=== PATIENT | male | born 1955 | race Caucasian/White ===

== ENCOUNTER 2017-01-02 21:06 | Inpatient (IN) | payer OTHER ==
[~2017-01-02] VITALS: Ht 165.1 cm; Wt 75.5 kg
[~2017-01-02 21:06] MED LIST: DIPHTH/TETANUS/ACEL PERTUSSIS (BOOSTER) 0.5 ML VIAL/PFS IM ONE; TERA2CAP3 PO; ceFAZolin 2 GM PREMIX 50 ML ONE
[2017-01-02 21:10] VITALS: O2SAT 98; O2SAT 99
[2017-01-02] MEDS ORDERED: fentaNYL CITRATE 250 MCG/5 ML AMP ONE (21:15)
[2017-01-02] MEDS ORDERED: ONDANSETRON HCL 4 MG/2 ML VIAL ONE (21:15)
[2017-01-02 21:26] LABS: I-STAT POTASSIUM 4.2 MMOL/L (3.5-4.9)
[2017-01-02 21:29] LABS: AUTOMATED NEUTROPHIL # 7.2 TH/MM3 (1.8-7.7); BASOPHIL # 0.1 TH/MM3 (0-0.2); BASOPHIL % 0.4 % (0.0-2.0); EOSINOPHIL # 0.1 TH/MM3 (0-0.4); EOSINOPHIL % 0.9 % (0.0-4.0); HEMATOCRIT 44.1 % (39.0-51.0); HEMO FLAGS DIFF FINAL; LYMPH % 37.3 % (9.0-44.0); LYMPHOCYTE # 4.7 TH/MM3 (1.0-4.8); MEAN CELL VOLUME 89.1 FL (80.0-100.0); MEAN CORPUSCULAR HEMOGLOBIN 31.1 PG (27.0-34.0); MEAN CORPUSCULAR HGB CONC 34.9 % (32.0-36.0); NEUT % 57.4 % (16.0-70.0); PLATELET COUNT 240 TH/MM3 (150-450); RED BLOOD COUNT 4.95 MIL/MM3 (4.50-5.90); WHITE BLOOD COUNT 12.6 TH/MM3 (4.0-11.0)
[2017-01-02 21:30] VITALS: BP 130/84; PULSE 92; RESP 18; O2SAT 92
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
[2017-01-02 22:00] VITALS: BP 127/81; PULSE 90; RESP 16; O2SAT 92
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
[2017-01-02 22:10] LABS: APTT (PATIENT) 23.2 SEC (24.3-30.1); PROTHROMBIN TIME - PATIENT 10.5 SEC (9.8-11.6)
[2017-01-02] MEDS ORDERED: SODIUM CHLORIDE 0.9% FLUSH 10 ML FLUSH IV FLUSH PRN (22:15)
[2017-01-02] MEDS ORDERED: SODIUM CHLOR 0.9% 1000 ML INJ 1,000 ML IV ONE (22:15)
[2017-01-02] MEDS ORDERED: MISCELLANEOUS NURSING INFORMATION XX SCH (22:15)
[2017-01-02] MEDS ORDERED: MORPHINE SULFATE 4 MG/ML INJ IV PUSH ONE (22:15)
[2017-01-02] MEDS ORDERED: LIDOCAINE 1%/EPINEPHrine 1:100,000 SOLN 20 ML VIAL INFIL ONE (22:15)
[2017-01-02] MEDS ORDERED: CHLORHEXIDINE GLUCONATE 2 % 1 PACK (2 CLOTHS) TOP PRN (22:15)
[2017-01-02] MEDS ORDERED: LIDOCAINE HCL 1% 50 ML VIAL INFIL ONE (22:15)
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
[2017-01-02] MEDS: SODIUM CHLOR 0.9% 1000 ML INJ 1,000 ML IV SCH (22:55)
[2017-01-02 23:00] VITALS: BP 119/81; PULSE 94; RESP 15; O2SAT 93
[2017-01-02] MEDS: KETOROLAC TROMETHAMINE 30 MG/ML (IVP) VIAL IV PUSH SCH (23:53)
[2017-01-02] MEDS: HYDROmorphone HCL PF 1 MG/ML VIAL IV PRN (23:53)
[2017-01-03] VITALS (15 sets, daily range): BP systolic 107–136; BP diastolic 68–86; PULSE 86–97; RESP 17–26; TEMP 98.2–99.7; O2SAT 89–97
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
[2017-01-03] MEDS: CHLORHEXIDINE GLUCONATE 2 % 1 PACK (2 CLOTHS) TOP SCH (03:22)
[2017-01-03 03:44] LABS: AUTOMATED NEUTROPHIL # 13.1 TH/MM3 (1.8-7.7); BASOPHIL % 0.3 % (0.0-2.0); EOSINOPHIL % 0.1 % (0.0-4.0); HEMATOCRIT 41.6 % (39.0-51.0); HEMO FLAGS DIFF FINAL; LYMPH % 11.2 % (9.0-44.0); LYMPHOCYTE # 1.8 TH/MM3 (1.0-4.8); MEAN CELL VOLUME 89.8 FL (80.0-100.0); MEAN CORPUSCULAR HGB CONC 34.6 % (32.0-36.0); MONO % 5.8 % (0.0-8.0); NEUT % 82.6 % (16.0-70.0); PLATELET COUNT 187 TH/MM3 (150-450); RED BLOOD COUNT 4.63 MIL/MM3 (4.50-5.90); RED CELL DISTRIBUTION WIDTH 12.7 % (11.6-17.2); WHITE BLOOD COUNT 15.8 TH/MM3 (4.0-11.0)
[2017-01-03] MEDS: HYDROmorphone HCL PF 1 MG/ML VIAL IV PRN ×2 (04:05→09:09)
[2017-01-03 04:06] LABS: BICARBONATE 19.9 MEQ/L (21.0-32.0); POTASSIUM 4.5 MEQ/L (3.5-5.1)
[2017-01-03] MEDS ORDERED: LORazepam 1 MG TAB PO PRN ×2 (04:15)
[2017-01-03] MEDS ORDERED: LORazepam 2 MG/ML VIAL IV PUSH PRN ×8 (04:15)
[2017-01-03] MEDS ORDERED: RESP: ALBUTEROL 2.5 MG/3 ML NEB (PRN) NEB (04:15)
[2017-01-03] MEDS: RESP: ALBUTEROL 2.5 MG/IPRATROPIUM 0.5 MG NEB (SCH) NEB ×4 (04:15→22:00)
[2017-01-03] MEDS ORDERED: oxyCODONE/ACETAMINOPHEN 10 MG/325 MG TAB PO PRN (04:15)
[2017-01-03] MEDS ORDERED: LORazepam 2 MG TAB PO PRN ×2 (04:15)
[2017-01-03] MEDS ORDERED: SODIUM CHLORIDE 0.9% FLUSH 10 ML FLUSH IV FLUSH PRN (04:15)
[2017-01-03 05:00] LABS: INDIRECT BILIRUBIN 0.5 MG/DL (0.0-0.8)
[2017-01-03] MEDS: KETOROLAC TROMETHAMINE 30 MG/ML (IVP) VIAL IV PUSH SCH ×3 (05:49→17:34)
[2017-01-03] MEDS ORDERED: PANTOPRAZOLE SODIUM 40 MG VIAL IV PUSH SCH (06:00)
--- NOTE | 2017-01-03 06:04 | RADRPT ---
EXAM DATE/TIME: 01/03/2017 05:26 [facility] COMPARISON: No previous studies available for comparison. INDICATIONS : Shortness of breath. MEDICAL HISTORY : None. SURGICAL HISTORY : None. ENCOUNTER: Initial ACUITY: 2 days PAIN SCORE: 5/10 LOCATION: Bilateral chest FINDINGS: A single view of the chest demonstrates interval development of prominent right-sided pneumothorax. T his measures 3.6 cm of pleural separation in the apex. The no mediastinal shift. Bibasilar densities, likely atelectasis. The cardiomediastinal contours are unremarkable. Osseous structures are intact. CONCLUSION: 1. Interval development of prominent right-sided pneumothorax. Right-sided chest tube recommended. 2. Bibasilar atelectasis greater in the left lower lobe. Cristian Burr MD on January 03, 2017 at 6:00 Board Certified Radiologist. This report was verified electronically.
--- NOTE | 2017-01-03 06:45 | RADRPT ---
EXAM DATE/TIME: 01/02/2017 21:26 [facility] COMPARISON: CT ABDOMEN & PELVIS W/O CONTRAST, January 02, 2017, 21:26. INDICATIONS : Left acetubalum fracture. ; Reconstructed from previous dataset MEDICAL HISTORY : Non-responsive. SURGICAL HISTORY : Non-responsive. ENCOUNTER: ACUITY: 2 days PAIN SCALE: Non-responsive LOCATION: Left pelvis TECHNIQUE: 3D reconstructions of the pelvis were performed. FINDINGS: Comminuted fracture of the left acetabulum again seen. There is significant separation of fracture fr agments. The femoral head is intact. Right hip is intact. Fracture extends into the ischial rami on t he left. CONCLUSION: 3-D reconstructions of left pelvic fracture. Cristian Burr MD on January 03, 2017 at 6:40 Board Certified Radiologist. This report was verified electronically.
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
[2017-01-03] MEDS: SODIUM CHLOR 0.9% 1000 ML INJ 1,000 ML IV SCH ×3 (07:51→23:58)
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
[2017-01-03] MEDS ORDERED: SODIUM CHLORIDE 0.9% FLUSH 10 ML FLUSH IV FLUSH SCH (09:00)
[2017-01-03] MEDS ORDERED: THIAMINE INJ 100 MG in SODIUM CHLORIDE 0.9% INJ 100 ML IV SCH (09:00)
[2017-01-03] MEDS: METHOCARBAMOL 500 MG TAB PO SCH ×3 (09:08→22:53)
[2017-01-03] MEDS: LACTULOSE SYRUP 20 GM/30 ML CUP PO SCH (09:09)
[2017-01-03] MEDS: FOLIC ACID 1 MG TAB PO SCH (09:09)
[2017-01-03] MEDS: MULTIVITAMIN TAB PO SCH (09:09)
[2017-01-03] MEDS: DOCUSATE SODIUM 50 MG/SENNA 8.6 MG TAB PO SCH ×2 (09:09→20:39)
[2017-01-03] MEDS: SODIUM CHLORIDE 0.9% FLUSH 10 ML FLUSH IV FLUSH SCH ×2 (09:10→20:40)
[2017-01-03] MEDS: LIDOCAINE HCL 5% PATCH T-DERMAL SCH (09:19)
[2017-01-03] MEDS ORDERED: HYDROmorphone HCL PCA 6 MG/30 ML IV SCH (11:15)
[2017-01-03] MEDS ORDERED: NALOXONE HCL 0.4 MG/ML AMP IV PRN (11:15)
[2017-01-03] MEDS: NICOTINE 21 MG/24 HR PATCH T-DERMAL SCH (11:51)
--- NOTE | 2017-01-03 11:55 | EKG ---
Date Performed: 01/02/2017 Time Performed: 21:57:58 PTAGE: 89 years EKG: Sinus rhythm INCOMPLETE RIGHT BUNDLE BRANCH BLOCK POSSIBLE LATERAL MYOCARDIAL INFARCTION BORDERLINE ECG NO PREVIOUS TRACING DOCTOR: Asif Calhoun Interpretating Date/Time 01/03/2017 11:51:26
[2017-01-03] MEDS ORDERED: MULTIVITAMIN INJ 10 ML, THIAMINE INJ 100 MG, FOLIC ACID INJ 1 MG in SODIUM CHLORID 0.9%... IV ONE (13:00)
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
[2017-01-03] MEDS ORDERED: fentaNYL CITRATE 250 MCG/5 ML AMP ONE (13:55)
[2017-01-03] MEDS: PCA - TOTAL MG DILAUDID DELIVERED PER SHIFT OTHER SCH ×2 (14:57→21:57)
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
[2017-01-03] MEDS: FAMOTIDINE 20 MG TAB PO SCH (20:39)
[2017-01-03] MEDS: TERAZOSIN HCL 5 MG CAP PO SCH (20:40)
[2017-01-03] MEDS: REMOVE OLD LIDODERM PATCH T-DERMAL SCH (21:00)
[2017-01-04] VITALS (8 sets, daily range): BP systolic 104–131; BP diastolic 61–72; PULSE 90–106; RESP 13–22; TEMP 97.6–99.8; O2SAT 92–96
[2017-01-04] MEDS: KETOROLAC TROMETHAMINE 30 MG/ML (IVP) VIAL IV PUSH SCH ×5 (00:11→17:57)
[2017-01-04] MEDS: RESP: ALBUTEROL 2.5 MG/IPRATROPIUM 0.5 MG NEB (SCH) NEB ×3 (03:42→16:00)
[2017-01-04] MEDS: CHLORHEXIDINE GLUCONATE 2 % 1 PACK (2 CLOTHS) TOP SCH (04:00)
[2017-01-04] MEDS: METHOCARBAMOL 500 MG TAB PO SCH ×3 (05:30→21:51)
[2017-01-04] MEDS: PCA - TOTAL MG DILAUDID DELIVERED PER SHIFT OTHER SCH (05:30)
[2017-01-04] MEDS ORDERED: VANCOMYCIN HCL 1000 MG VIAL ONE (06:23)
[2017-01-04] MEDS ORDERED: ceFAZolin 2 GM PREMIX 50 ML ONE (06:23)
[2017-01-04] MEDS ORDERED: HEPARIN SODIUM - SQ 10,000 UNITS/ML VIAL ONE (06:24)
[2017-01-04] MEDS ORDERED: GENTAMICIN SULFATE 80 MG/2 ML VIAL ONE (06:24)
[2017-01-04] MEDS ORDERED: SODIUM CHLOR 0.9% 250 ML INJ 250 ML ONE (06:24)
[2017-01-04] MEDS ORDERED: ACETAMINOPHEN 1000 MG/100 ML VIAL IV ONE (06:45)
[2017-01-04] MEDS ORDERED: MIDAZOLAM HCL 2 MG/2 ML VIAL ONE (06:46)
[2017-01-04] MEDS ORDERED: FAMOTIDINE 20 MG/2 ML VIAL ONE (06:46)
[2017-01-04] MEDS ORDERED: DEXAMETHASONE SOD PHOS 4 MG/ML VIAL ONE (06:46)
[2017-01-04] MEDS ORDERED: fentaNYL CITRATE 250 MCG/5 ML AMP ONE (06:46)
[2017-01-04] MEDS ORDERED: TRANEXAMIC ACID INJ 1,146 MG in SODIUM CHLORIDE 0.9% INJ 100 ML IV SCH (07:00)
[2017-01-04] MEDS ORDERED: THROMBIN (TOPICAL) 5,000 UNIT VIAL ONE (08:21)
[2017-01-04] MEDS ORDERED: GELFOAM SIZE 100 ONE (08:22)
[2017-01-04 08:38] LABS: HEMATOCRIT 30.3 % (39.0-51.0)
[2017-01-04 08:39] LABS: REVIEW FLAG FINAL
[2017-01-04] MEDS: REMOVE OLD PATCH T-DERMAL SCH (09:00)
[2017-01-04] MEDS: SODIUM CHLORIDE 0.9% FLUSH 10 ML FLUSH IV FLUSH SCH ×2 (09:00→21:47)
[2017-01-04 09:02] LABS: APTT (PATIENT) 27.2 SEC (24.3-30.1); PROTHROMBIN TIME - PATIENT 10.7 SEC (9.8-11.6)
[2017-01-04] MEDS ORDERED: NALOXONE HCL 0.4 MG/ML AMP IV PRN (10:00)
[2017-01-04] MEDS ORDERED: MISCELLANEOUS NURSING INFORMATION XX PRN (10:00)
[2017-01-04] MEDS ORDERED: MISCELLANEOUS PHARMACY INFORMATION XX ONE (10:00)
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
[2017-01-04] MEDS ORDERED: DO NOT ADM ANY ANTICOAGULANT DRUGS PRN (10:13)
[2017-01-04] MEDS ORDERED: MORPHINE SULFATE 4 MG/ML INJ IV PUSH PRN (11:00)
[2017-01-04] MEDS: LACTATED RINGER'S 1000 ML INJ 1,000 ML IV SCH ×2 (11:00→21:52)
[2017-01-04] MEDS ORDERED: ACETAMINOPHEN/HYDROcodone 325 MG/10 MG TAB PO PRN (11:00)
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
[2017-01-04 11:06] LABS: AUTOMATED NEUTROPHIL # 8.1 TH/MM3 (1.8-7.7); BASOPHIL % 0.4 % (0.0-2.0); EOSINOPHIL % 0.4 % (0.0-4.0); LYMPH % 8.1 % (9.0-44.0); LYMPHOCYTE # 0.7 TH/MM3 (1.0-4.8); MEAN CELL VOLUME 88.2 FL (80.0-100.0); MEAN CORPUSCULAR HEMOGLOBIN 30.3 PG (27.0-34.0); MEAN CORPUSCULAR HGB CONC 34.4 % (32.0-36.0); MONO % 3.2 % (0.0-8.0); NEUT % 87.9 % (16.0-70.0); PLATELET COUNT 90 TH/MM3 (150-450); RED BLOOD COUNT 4.09 MIL/MM3 (4.50-5.90); RED CELL DISTRIBUTION WIDTH 14.5 % (11.6-17.2); WHITE BLOOD COUNT 9.2 TH/MM3 (4.0-11.0)
[2017-01-04 11:08] LABS: HEMO FLAGS AUTO DIFF
[2017-01-04 11:18] LABS: APTT (PATIENT) 24.7 SEC (24.3-30.1); PROTHROMBIN TIME - PATIENT 10.9 SEC (9.8-11.6)
[2017-01-04] MEDS ORDERED: ENOXAPARIN SODIUM 30 MG/0.3 ML SYRINGE SQ SCH (11:45)
[2017-01-04 11:47] LABS: PLATELET ESTIMATE SMEAR LOW (NORMAL); PLATELET MORPHOLOGY NORMAL (NORMAL); SCAN/DIFF AUTO DIFF CONFIRMED
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
[2017-01-04] MEDS ORDERED: ONDANSETRON HCL 4 MG/2 ML VIAL IV PUSH ONE (13:09)
[2017-01-04] MEDS ORDERED: NEOSTIGMINE 3 MG/3 ML SYR IV ONE (13:09)
[2017-01-04] MEDS ORDERED: LACTATED RINGER'S 1000 ML INJ 1,000 ML IV ONE (13:09)
[2017-01-04] MEDS ORDERED: ePHEDrine/NS 25 MG/5 ML SYR IV ONE (13:09)
[2017-01-04] MEDS ORDERED: PROPOFOL 200 MG/20 ML AMP IV ONE (13:09)
[2017-01-04] MEDS ORDERED: PHENYLEPH/NS 1000 MCG/10 ML SYR IV ONE (13:09)
[2017-01-04] MEDS: PCA - TOTAL MG MORPHINE DELIVERED PER SHIFT SCH ×2 (14:00→22:00)
--- NOTE | 2017-01-04 14:25 | RADRPT ---
EXAM DATE/TIME: 01/04/2017 09:20 [facility] COMPARISON: CT ABDOMEN & PELVIS W/O CONTRAST, January 02, 2017, 21:26. INDICATIONS : ORIF left acetabulum. MEDICAL HISTORY : None. SURGICAL HISTORY : None. ENCOUNTER: Subsequent ACUITY: 3 days PAIN SCORE: Non-responsive. LOCATION: Left acetabulum. FINDINGS: 3 views of the left hip demonstrates postsurgical changes following open reduction and internal fixat ion of comminuted fractures involving the anterior and posterior columns of the acetabulum. Long fixa tion screw is also seen along the iliopectineal line extending into the superior pubic ramus. Fractur e fragments appear in satisfactory aligned. CONCLUSION: Satisfactory fracture fragment alignment following ORIF of a comminuted left acetabular fracture. Hosea Rodney MD on January 04, 2017 at 14:21 Board Certified Radiologist. This report was verified electronically.
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
[2017-01-04] MEDS: NICOTINE 21 MG/24 HR PATCH T-DERMAL SCH (15:04)
[2017-01-04] MEDS: LIDOCAINE HCL 5% PATCH T-DERMAL SCH (15:05)
[2017-01-04] MEDS: MULTIVITAMIN TAB PO SCH (15:06)
[2017-01-04] MEDS: FOLIC ACID 1 MG TAB PO SCH (15:06)
[2017-01-04] MEDS: LACTULOSE SYRUP 20 GM/30 ML CUP PO SCH (15:06)
[2017-01-04] MEDS: FAMOTIDINE 20 MG TAB PO SCH ×2 (15:06→21:47)
[2017-01-04] MEDS: DOCUSATE SODIUM 50 MG/SENNA 8.6 MG TAB PO SCH ×2 (15:06→21:47)
[2017-01-04] MEDS: ceFAZolin 2 GM PREMIX 50 ML IV SCH ×2 (15:55→21:51)
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
[2017-01-04] MEDS: REMOVE OLD LIDODERM PATCH T-DERMAL SCH (21:00)
[2017-01-04] MEDS: VANCOMYCIN INJ 1,000 MG in SODIUM CHLOR 0.9% 250 ML INJ 250 ML IV SCH (21:47)
[2017-01-04] MEDS: TERAZOSIN HCL 5 MG CAP PO SCH (21:51)
[2017-01-05] VITALS (11 sets, daily range): BP systolic 95–109; BP diastolic 61–69; PULSE 90–101; RESP 18–22; TEMP 97.5–99.7; O2SAT 89–95
[2017-01-05] MEDS: KETOROLAC TROMETHAMINE 30 MG/ML (IVP) VIAL IV PUSH SCH ×5 (00:02→22:09)
[2017-01-05] MEDS: RESP: ALBUTEROL 2.5 MG/IPRATROPIUM 0.5 MG NEB (SCH) NEB ×4 (04:00→21:39)
[2017-01-05 05:29] LABS: AUTOMATED NEUTROPHIL # 5.6 TH/MM3 (1.8-7.7); BASOPHIL % 0.3 % (0.0-2.0); EOSINOPHIL # 0.1 TH/MM3 (0-0.4); EOSINOPHIL % 0.8 % (0.0-4.0); HEMATOCRIT 26.7 % (39.0-51.0); LYMPH % 16.1 % (9.0-44.0); LYMPHOCYTE # 1.2 TH/MM3 (1.0-4.8); MEAN CELL VOLUME 88.3 FL (80.0-100.0); MEAN CORPUSCULAR HEMOGLOBIN 30.7 PG (27.0-34.0); MEAN CORPUSCULAR HGB CONC 34.8 % (32.0-36.0); MONO % 8.8 % (0.0-8.0); PLATELET COUNT 89 TH/MM3 (150-450); RED BLOOD COUNT 3.02 MIL/MM3 (4.50-5.90); WHITE BLOOD COUNT 7.5 TH/MM3 (4.0-11.0)
[2017-01-05 05:34] LABS: HEMO FLAGS AUTO DIFF
[2017-01-05 05:42] LABS: ALKALINE PHOSPHATASE 46 U/L (45-117); ALT (GPT) 51 U/L (12-78); ANION GAP 7 MEQ/L (5-15); AST (GOT) 108 U/L (15-37); BICARBONATE 26.5 MEQ/L (21.0-32.0); BLOOD UREA NITROGEN 10 MG/DL (7-18); CHLORIDE 106 MEQ/L (98-107); GLOMERULAR FILTRATION RATE 72 ML/MIN (>89); MAGNESIUM 1.9 MG/DL (1.5-2.5); POTASSIUM 3.8 MEQ/L (3.5-5.1); SODIUM (NA) 139 MEQ/L (136-145); TOTAL BILIRUBIN ADULT 0.7 MG/DL (0.2-1.0)
[2017-01-05] MEDS: ceFAZolin 2 GM PREMIX 50 ML IV SCH ×3 (05:54→22:09)
[2017-01-05] MEDS: METHOCARBAMOL 500 MG TAB PO SCH ×3 (05:55→22:09)
[2017-01-05] MEDS: LACTATED RINGER'S 1000 ML INJ 1,000 ML IV SCH ×2 (06:00→16:43)
[2017-01-05] MEDS: PCA - TOTAL MG MORPHINE DELIVERED PER SHIFT SCH ×3 (06:00→21:02)
--- NOTE | 2017-01-05 06:38 | PD.ORT.PN ---
Subjective Subjective Remarks POD 1 s/p ORIF left acetabulum doing well. reports has pain but controlled. Objective Vitals Vital Signs Date Time Temp Pulse Resp B/P Pulse Ox O2 Delivery O2 Flow Rate FiO2 01/05/17 06:00 17 01/05/17 03:40 98.3 98 18 100/63 95 01/05/17 00:00 99.7 99 18 108/66 95 01/04/17 22:00 19 01/04/17 19:47 98.5 95 17 112/66 96 01/04/17 18:58 Nasal Cannula 3.00 01/04/17 16:00 97.6 94 18 118/63 96 01/04/17 16:00 94 01/04/17 15:00 97 Nasal Cannula 4.00 01/04/17 15:00 94 01/04/17 14:00 20 01/04/17 12:00 96 01/04/17 12:00 97.6 96 22 114/72 95 01/04/17 11:10 101 14 142/79 95 Nasal Cannula 2 01/04/17 11:00 99 14 137/81 94 Nasal Cannula 2 01/04/17 10:45 97 14 139/84 94 Nasal Cannula 2 01/04/17 10:30 112 14 150/94 98 Nasal Cannula 2 01/04/17 10:25 Simple Mask 01/04/17 10:15 97.6 110 14 145/90 98 Simple Mask 10 I/O 01/04/17 01/04/17 01/04/17 01/05/17 01/05/17 01/05/17 07:00 15:00 23:00 07:00 15:00 23:00 Intake Total 970 ml 3148 ml 881 ml 1118 ml Output Total 1425 ml 2765 ml 835 ml 1360 ml Balance -455 ml 383 ml 46 ml -242 ml Intake Oral 0 ml 120 ml 720 ml 480 ml IV Total 970 ml 728 ml 161 ml 638 ml Other 2300 ml Output Urine Total 1425 ml 1325 ml 825 ml 1350 ml Chest Tube Drainage Total 0 ml 115 ml 0 ml 0 ml Drainage Total 25 ml 10 ml 10 ml Estimated Blood Loss 1300 ml # Bowel Movements 0 0 Result Diagram: 01/05/17 0436 01/05/17 0436 Other Results Laboratory Tests Test 01/04/17 01/04/17 08:08 10:30 Prothrombin Time 10.7 SEC 10.9 SEC (9.8-11.6) (9.8-11.6) Prothromb Time International 1.0 RATIO 1.0 RATIO Ratio Imaging Last 24 hours Impressions Multiplanar Reconstruction 01/03/17 0000 Signed Impressions: Service Date/Time: Monday, January 02, 2017 21:26 - CONCLUSION: 3-D reconstructions of left pelvic fracture. Cristian Burr MD Chest X-Ray 01/03/17 0000 Signed Impressions: Service Date/Time: Tuesday, January 03, 2017 05:26 - CONCLUSION: 1. Interval development of prominent right-sided pneumothorax. Right-sided chest tube recommended. 2. Bibasilar atelectasis greater in the left lower lobe. Cristian Burr MD Thoracic Spine CT 01/02/172114 Signed Impressions: Service Date/Time: Monday, January 02, 2017 21:26 - CONCLUSION: 1. Fracture of the right posterior first rib. 2. The thoracic vertebra are intact. Basilio Nicole MD Lumbar Spine CT 01/02/172114 Signed Impressions: Service Date/Time: Monday, January 02, 2017 21:26 - CONCLUSION: 1. No evidence of fracture. 2. Grade 1 anterior spondylolisthesis of L5 on S1 of approximately 9 mm with apparent bilateral pars defects. There are mild degenerative disc changes at this level with disc bulge and narrowing of the neural foramina bilaterally. Basilio Nicole MD Pelvis X-Ray 01/02/172110 Signed Impressions: Service Date/Time: Monday, January 02, 2017 21:05 - CONCLUSION: Racture to the superior left acetabulum. Basilio Nicole MD Head CT 01/02/172110 Signed Impressions: Service Date/Time: Monday, January 02, 2017 21:21 - CONCLUSION: 1. Suboptimal study secondary to streak and mild motion artifact. 2. No acute hemorrhage or mass effect. Basilio Nicole MD Chest X-Ray 01/02/172110 Signed Impressions: Service Date/Time: Monday, January 02, 2017 21:05 - CONCLUSION: Multiple right-sided rib fractures with no visualized pneumothorax on this supine study. Basilio Nicole MD Chest CT 01/02/172110 Signed Impressions: Service Date/Time: Monday, January 02, 2017 21:26 - CONCLUSION: 1. Multiple right-sided rib fractures one of which is mildly displaced with small amount of subcutaneous air and no visualized pneumothorax. 2. Small to moderate size hiatal hernia. 3. Atelectasis in the dependent portions of the lung bases. Basilio Nicole MD Cervical Spine CT 01/02/172110 Signed Impressions: Service Date/Time: Monday, January 02, 2017 21:21 - CONCLUSION: Fracture of the right anterior first rib. The cervical spine is intact. Basilio Nicole MD Abdomen/Pelvis CT 01/02/172110 Signed Impressions: Service Date/Time: Monday, January 02, 2017 21:26 - CONCLUSION: 1. No definite evidence of visceral injury. 2. Comminuted fracture deformity of the left acetabulum. 3. Are currently enlarged bladder with trabeculation and multiple diverticuli. 4. Moderate bilateral hydronephrosis. 5. Hiatal hernia. Basilio Nicole MD Objective Remarks LLE: dressings clean and dry. intact. NVI with good dorsiflexion. +CKS. Assessment & Plan Assessment and Plan 1) Left Acetabulum Fx s/p ORIF - POD 1 -TTWB left leg -daily dressing changes POD 2 -DC drain POD 2 with dressing change -knee brace while in bed -work with PT\ -plan for DC to rehab when stable and bed available -f/u Radha or [facility]Y in 2 weeks -will order 1 unit of platelets today Thiago Monge Jan 05, 2017 06:38
[2017-01-05] MEDS ORDERED: HYDR-3366 PO (06:40)
[2017-01-05] MEDS ORDERED: WALKER/ADULT/FO1 MIS (06:40)
[2017-01-05] MEDS ORDERED: XARE10TA PO (06:40)
[2017-01-05] MEDS: MORPHINE SULFATE 30 MG/30 ML PCA IV SCH (06:44)
[2017-01-05] MEDS ORDERED: diphenhydrAMINE HCL 25 MG CAP PO PRN (06:45)
[2017-01-05] MEDS ORDERED: SODIUM CHLOR 0.9% 250 ML INJ 250 ML IV ONE (06:45)
[2017-01-05 06:50] LABS: PLATELET ESTIMATE SMEAR LOW (NORMAL); PLATELET MORPHOLOGY NORMAL (NORMAL); SCAN/DIFF AUTO DIFF CONFIRMED
--- NOTE | 2017-01-05 07:58 | RADRPT ---
EXAM DATE/TIME: 01/05/2017 06:48 [facility] COMPARISON: CHEST SINGLE AP, January 04, 2017, 12:10. INDICATIONS : Evaluate right side pneumothorax and chest tube MEDICAL HISTORY : rib fractures SURGICAL HISTORY : chest tube ENCOUNTER: Subsequent ACUITY: 4 - 6 days PAIN SCORE: 6/10 LOCATION: Bilateral chest FINDINGS: Portable upright expiratory view of the chest demonstrates a normal-sized cardiac silhouette. Right c hest tube is present and no pneumothorax is visualized. There is atelectasis versus consolidation in the retrocardiac region. No pleural effusion is seen. Bones demonstrate no acute finding. CONCLUSION: 1. Right chest tube remains present and no pneumothorax is visualized. 2. There is atelectasis versus consolidation in the left lower lobe. David Olmos MD on January 05, 2017 at 7:55 Board Certified Radiologist. This report was verified electronically.
[2017-01-05] MEDS: SODIUM CHLORIDE 0.9% FLUSH 10 ML FLUSH IV FLUSH SCH ×2 (08:21→20:37)
[2017-01-05] MEDS: VANCOMYCIN INJ 1,000 MG in SODIUM CHLOR 0.9% 250 ML INJ 250 ML IV SCH ×2 (08:21→19:33)
[2017-01-05] MEDS: MULTIVITAMIN TAB PO SCH (08:22)
[2017-01-05] MEDS: FOLIC ACID 1 MG TAB PO SCH (08:22)
[2017-01-05] MEDS: FAMOTIDINE 20 MG TAB PO SCH ×2 (08:22→19:36)
[2017-01-05] MEDS: ENOXAPARIN SODIUM 30 MG/0.3 ML SYRINGE SQ SCH ×2 (08:22→19:36)
[2017-01-05] MEDS: DOCUSATE SODIUM 50 MG/SENNA 8.6 MG TAB PO SCH ×2 (08:22→19:36)
[2017-01-05] MEDS: LACTULOSE SYRUP 20 GM/30 ML CUP PO SCH (08:22)
[2017-01-05] MEDS: INDOMETHACIN 75 MG CONTROLLED RELEASE CAP PO SCH (08:22)
[2017-01-05] MEDS: NICOTINE 21 MG/24 HR PATCH T-DERMAL SCH (08:22)
[2017-01-05] MEDS: REMOVE OLD PATCH T-DERMAL SCH (08:23)
[2017-01-05] MEDS: LIDOCAINE HCL 5% PATCH T-DERMAL SCH (08:23)
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
--- NOTE | 2017-01-05 13:42 | RADRPT ---
EXAM DATE/TIME: 01/05/2017 13:13 [facility] COMPARISON: CHEST SINGLE AP, January 05, 2017, 6:48. INDICATIONS : Evaluate right side pneumothorax and chest tube MEDICAL HISTORY : rib fractures SURGICAL HISTORY : chest tube ENCOUNTER: Subsequent ACUITY: 4 - 6 days PAIN SCORE: 2/10 LOCATION: Right chest FINDINGS: Expiratory view the chest was performed. There is no evidence of significant right-sided pneumothorax . Chest tube remains in place. CONCLUSION: No evidence of significant pneumothorax. Hosea Rodney MD on January 05, 2017 at 13:32 Board Certified Radiologist. This report was verified electronically.
--- NOTE | 2017-01-05 15:44 | RADRPT ---
EXAM DATE/TIME: 01/05/2017 15:00 [facility] COMPARISON: CHEST SINGLE AP, January 05, 2017, 13:13. INDICATIONS : RIGHT ANTERIOR CHEST TUBE REMOVAL DEVICE(S): 1.) Vaseline occlusive dressing PROCEDURE : Chest tube removal. Using aseptic technique the previously placed chest tube was easily removed in one piece and Vaseline gauze and sterile dressing was applied. Chest radiograph is to be obtained. CONCLUSION: Uncomplicated chest tube removal. Hosea Rodney MD on January 05, 2017 at 15:41 Board Certified Radiologist. This report was verified electronically.
--- NOTE | 2017-01-05 16:21 | RADRPT ---
EXAM DATE/TIME: 01/05/2017 15:16 [facility] COMPARISON: CHEST SINGLE AP, January 05, 2017, 13:13. INDICATIONS : Evaluate for pneumothorax, post chest tube removal. MEDICAL HISTORY : None. SURGICAL HISTORY : None. ENCOUNTER: Initial ACUITY: 1 day PAIN SCORE: 0/10 LOCATION: Bilateral chest FINDINGS: There has been interval removal of a right thoracostomy tube. There is no evidence of pneumothorax. B asilar parenchymal opacities are likely exacerbated by expiratory technique. Mild vascular congestion and perihilar parenchymal opacity mainly on the right are stable findings. CONCLUSION: Right chest tube removal without pneumothorax. David Aguilar MD on January 05, 2017 at 15:58 Board Certified Radiologist. This report was verified electronically.
[2017-01-05] MEDS ORDERED: BISACODYL EC 5 MG TABEC PO ONE (17:00)
[2017-01-05] MEDS ORDERED: BISACODYL 10 MG SUPP RECTAL ONE (17:00)
[2017-01-05] MEDS: TERAZOSIN HCL 5 MG CAP PO SCH (19:36)
[2017-01-05] MEDS: REMOVE OLD LIDODERM PATCH T-DERMAL SCH (19:37)
[2017-01-06] VITALS (8 sets, daily range): BP systolic 104–116; BP diastolic 63–72; PULSE 87–106; RESP 16–22; TEMP 98.3–99.7; O2SAT 92–95
[2017-01-06] MEDS: RESP: ALBUTEROL 2.5 MG/IPRATROPIUM 0.5 MG NEB (SCH) NEB ×5 (03:47→23:02)
[2017-01-06] MEDS: KETOROLAC TROMETHAMINE 30 MG/ML (IVP) VIAL IV PUSH SCH ×4 (04:31→22:38)
[2017-01-06] MEDS: METHOCARBAMOL 500 MG TAB PO SCH ×3 (04:31→22:38)
[2017-01-06] MEDS: ceFAZolin 2 GM PREMIX 50 ML IV SCH ×3 (04:32→22:38)
[2017-01-06] MEDS: MORPHINE SULFATE 30 MG/30 ML PCA IV SCH (04:37)
[2017-01-06] MEDS: PCA - TOTAL MG MORPHINE DELIVERED PER SHIFT SCH ×3 (04:45→20:48)
[2017-01-06 05:33] LABS: AUTOMATED NEUTROPHIL # 3.5 TH/MM3 (1.8-7.7); BASOPHIL % 0.7 % (0.0-2.0); EOSINOPHIL # 0.2 TH/MM3 (0-0.4); EOSINOPHIL % 2.7 % (0.0-4.0); HEMATOCRIT 24.4 % (39.0-51.0); HEMO FLAGS DIFF FINAL; LYMPH % 25.8 % (9.0-44.0); LYMPHOCYTE # 1.4 TH/MM3 (1.0-4.8); MEAN CELL VOLUME 86.8 FL (80.0-100.0); MEAN CORPUSCULAR HEMOGLOBIN 30.7 PG (27.0-34.0); MEAN CORPUSCULAR HGB CONC 35.4 % (32.0-36.0); MONO % 7.8 % (0.0-8.0); PLATELET COUNT 124 TH/MM3 (150-450); RED BLOOD COUNT 2.81 MIL/MM3 (4.50-5.90); RED CELL DISTRIBUTION WIDTH 14.2 % (11.6-17.2); WHITE BLOOD COUNT 5.6 TH/MM3 (4.0-11.0)
[2017-01-06 05:55] LABS: ALT (GPT) 42 U/L (12-78); ANION GAP 6 MEQ/L (5-15); AST (GOT) 101 U/L (15-37); BLOOD UREA NITROGEN 8 MG/DL (7-18); CHLORIDE 107 MEQ/L (98-107); GLOMERULAR FILTRATION RATE 85 ML/MIN (>89); MAGNESIUM 1.7 MG/DL (1.5-2.5); POTASSIUM 3.7 MEQ/L (3.5-5.1); SODIUM (NA) 141 MEQ/L (136-145)
[2017-01-06 05:57] LABS: ALKALINE PHOSPHATASE 51 U/L (45-117); TOTAL BILIRUBIN ADULT 0.6 MG/DL (0.2-1.0)
--- NOTE | 2017-01-06 06:33 | RADRPT ---
EXAM DATE/TIME: 01/06/2017 05:25 [facility] COMPARISON: CHEST SINGLE AP, January 05, 2017, 13:13. INDICATIONS : Shortness of breath, possible pulmonary disease. MEDICAL HISTORY : None. SURGICAL HISTORY : None. ENCOUNTER: Subsequent ACUITY: 4 - 6 days PAIN SCORE: 7/10 LOCATION: Bilateral chest FINDINGS: The cardiac silhouette is normal in transverse diameter. There is left lower lobe atelectasis versus pneumonia. There is resolving pulmonary vascular congestion. Right chest tube has been removed. There is no evidence of pneumothorax. CONCLUSION: 1. Resolving vascular congestion. There is no evidence of pneumothorax. 2. Left lower lobe atelectasis versus pneumonia. Scotty Stout MD on January 06, 2017 at 6:30 Board Certified Radiologist. This report was verified electronically.
[2017-01-06] MEDS: VANCOMYCIN INJ 1,000 MG in SODIUM CHLOR 0.9% 250 ML INJ 250 ML IV SCH (08:29)
[2017-01-06] MEDS: NICOTINE 21 MG/24 HR PATCH T-DERMAL SCH (08:29)
[2017-01-06] MEDS: DOCUSATE SODIUM 50 MG/SENNA 8.6 MG TAB PO SCH ×2 (08:30→20:47)
[2017-01-06] MEDS: INDOMETHACIN 75 MG CONTROLLED RELEASE CAP PO SCH (08:30)
[2017-01-06] MEDS: FAMOTIDINE 20 MG TAB PO SCH ×2 (08:30→20:47)
[2017-01-06] MEDS: LACTULOSE SYRUP 20 GM/30 ML CUP PO SCH (08:30)
[2017-01-06] MEDS: FOLIC ACID 1 MG TAB PO SCH (08:30)
[2017-01-06] MEDS: ENOXAPARIN SODIUM 30 MG/0.3 ML SYRINGE SQ SCH ×2 (08:30→20:46)
[2017-01-06] MEDS: LIDOCAINE HCL 5% PATCH T-DERMAL SCH (08:30)
[2017-01-06] MEDS: MULTIVITAMIN TAB PO SCH (08:30)
[2017-01-06] MEDS: REMOVE OLD PATCH T-DERMAL SCH (08:30)
[2017-01-06] MEDS: SODIUM CHLORIDE 0.9% FLUSH 10 ML FLUSH IV FLUSH SCH ×2 (08:31→20:47)
--- NOTE | 2017-01-06 09:18 | PD.ORT.PN ---
Subjective Post Op Day #: 2 Subjective Remarks Patient laying comfortably in bed, accompanied by his . He admits left hip pain is well controlled. He states he walked successfully with assistance. Awaiting rehab placement / approval (patient reports he does not have medical insurance at this time). No new complaints noted. Objective Vitals Vital Signs Date Time Temp Pulse Resp B/P Pulse Ox O2 Delivery O2 Flow Rate FiO2 01/06/17 04:45 20 01/06/17 04:37 20 01/06/17 04:13 98.9 102 22 110/72 94 01/06/17 00:27 99.7 106 22 104/68 94 01/05/17 21:43 93 Nasal Cannula 01/05/17 21:35 98.2 94 22 99/62 92 01/05/17 21:02 20 01/05/17 16:14 89 Nasal Cannula 3.00 01/05/17 15:00 97.5 92 18 101/65 91 01/05/17 14:00 18 01/05/17 12:00 98.9 90 18 109/69 95 01/05/17 11:28 99.2 95 18 104/64 95 01/05/17 11:18 99.6 97 18 105/65 94 I/O 01/05/17 01/05/17 01/05/17 01/06/17 01/06/17 01/06/17 07:00 15:00 23:00 07:00 15:00 23:00 Intake Total 1118 ml 1253 ml Output Total 1360 ml 730 ml Balance -242 ml 523 ml Intake Oral 480 ml 520 ml IV Total 638 ml 263 ml Platelets 470 ml Output Urine Total 1350 ml 600 ml Chest Tube Drainage Total 0 ml 100 ml Drainage Total 10 ml 30 ml # Bowel Movements 0 2 Result Diagram: 01/06/17 0507 01/06/17 0507 Imaging Last 24 hours Impressions Multiplanar Reconstruction 01/03/17 0000 Signed Impressions: Service Date/Time: Monday, January 02, 2017 21:26 - CONCLUSION: 3-D reconstructions of left pelvic fracture. Cristian Burr MD Chest X-Ray 01/03/17 0000 Signed Impressions: Service Date/Time: Tuesday, January 03, 2017 05:26 - CONCLUSION: 1. Interval development of prominent right-sided pneumothorax. Right-sided chest tube recommended. 2. Bibasilar atelectasis greater in the left lower lobe. Cristian Burr MD Thoracic Spine CT 01/02/172114 Signed Impressions: Service Date/Time: Monday, January 02, 2017 21:26 - CONCLUSION: 1. Fracture of the right posterior first rib. 2. The thoracic vertebra are intact. Basilio Nicole MD Lumbar Spine CT 01/02/172114 Signed Impressions: Service Date/Time: Monday, January 02, 2017 21:26 - CONCLUSION: 1. No evidence of fracture. 2. Grade 1 anterior spondylolisthesis of L5 on S1 of approximately 9 mm with apparent bilateral pars defects. There are mild degenerative disc changes at this level with disc bulge and narrowing of the neural foramina bilaterally. Basilio Nicole MD Pelvis X-Ray 01/02/172110 Signed Impressions: Service Date/Time: Monday, January 02, 2017 21:05 - CONCLUSION: Racture to the superior left acetabulum. Basilio Nicole MD Head CT 01/02/172110 Signed Impressions: Service Date/Time: Monday, January 02, 2017 21:21 - CONCLUSION: 1. Suboptimal study secondary to streak and mild motion artifact. 2. No acute hemorrhage or mass effect. Basilio Nicole MD Chest X-Ray 01/02/172110 Signed Impressions: Service Date/Time: Monday, January 02, 2017 21:05 - CONCLUSION: Multiple right-sided rib fractures with no visualized pneumothorax on this supine study. Basilio Nicole MD Chest CT 01/02/172110 Signed Impressions: Service Date/Time: Monday, January 02, 2017 21:26 - CONCLUSION: 1. Multiple right-sided rib fractures one of which is mildly displaced with small amount of subcutaneous air and no visualized pneumothorax. 2. Small to moderate size hiatal hernia. 3. Atelectasis in the dependent portions of the lung bases. Basilio Nicole MD Cervical Spine CT 01/02/172110 Signed Impressions: Service Date/Time: Monday, January 02, 2017 21:21 - CONCLUSION: Fracture of the right anterior first rib. The cervical spine is intact. Basilio Nicole MD Abdomen/Pelvis CT 01/02/172110 Signed Impressions: Service Date/Time: Monday, January 02, 2017 21:26 - CONCLUSION: 1. No definite evidence of visceral injury. 2. Comminuted fracture deformity of the left acetabulum. 3. Are currently enlarged bladder with trabeculation and multiple diverticuli. 4. Moderate bilateral hydronephrosis. 5. Hiatal hernia. Basilio Nicole MD Procedures Left Acetabulum Fx s/p ORIF Objective Remarks LLE: dressings clean and dry. intact. NVI with good dorsiflexion. +CKS. Assessment & Plan Ortho Post Op Day #: 2 Problem List: (1) Acetabulum fracture, left (2) Multiple fractures of ribs (3) Trauma (4) Alcohol intoxication Assessment and Plan 1) Left Acetabulum Fx s/p ORIF - POD 2 -TTWB left leg -daily dressing changes -knee brace while in bed -work with PT, toe touch w/b -plan for DC to rehab when stable and bed available -f/u [facility] or [facility] in 2 weeks Vidya Perez Jan 06, 2017 09:18
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
[2017-01-06] MEDS: CEFEPIME INJ 2,000 MG in SODIUM CHLORIDE 0.9% INJ 100 ML IV SCH (14:35)
[2017-01-06] MEDS: AZITHROMYCIN INJ 500 MG in SODIUM CHLOR 0.9% 250 ML INJ 250 ML IV SCH (14:36)
[2017-01-06] MEDS: RESP: ALBUTEROL 2.5 MG/IPRATROPIUM 0.5 MG NEB (SCH) INH ×2 (15:20→21:28)
[2017-01-06] MEDS: ACETAMINOPHEN/HYDROcodone 325 MG/10 MG TAB PO PRN (18:35)
[2017-01-06] MEDS: TERAZOSIN HCL 5 MG CAP PO SCH (20:47)
[2017-01-06] MEDS: REMOVE OLD LIDODERM PATCH T-DERMAL SCH (20:48)
[2017-01-06 21:03] LABS: MEAN CORPUSCULAR HGB CONC 36.4 % (32.0-36.0)
[2017-01-07] VITALS (8 sets, daily range): BP systolic 104–128; BP diastolic 63–81; PULSE 82–97; RESP 17–18; TEMP 96.8–98.6; O2SAT 93–99
[2017-01-07] MEDS: CEFEPIME INJ 2,000 MG in SODIUM CHLORIDE 0.9% INJ 100 ML IV SCH ×4 (00:27→21:34)
[2017-01-07] MEDS: PCA - TOTAL MG MORPHINE DELIVERED PER SHIFT SCH ×3 (02:43→20:03)
[2017-01-07] MEDS: RESP: ALBUTEROL 2.5 MG/IPRATROPIUM 0.5 MG NEB (SCH) INH ×4 (03:19→21:12)
[2017-01-07] MEDS: ceFAZolin 2 GM PREMIX 50 ML IV SCH (05:34)
[2017-01-07] MEDS: METHOCARBAMOL 500 MG TAB PO SCH ×3 (05:34→21:34)
[2017-01-07] MEDS: ACETAMINOPHEN/HYDROcodone 325 MG/10 MG TAB PO PRN ×3 (05:34→18:35)
[2017-01-07 07:41] LABS: BASOPHIL % 0.6 % (0.0-2.0); EOSINOPHIL # 0.3 TH/MM3 (0-0.4); EOSINOPHIL % 4.4 % (0.0-4.0); HEMATOCRIT 27.6 % (39.0-51.0); LYMPH % 18.4 % (9.0-44.0); LYMPHOCYTE # 1.1 TH/MM3 (1.0-4.8); MEAN CELL VOLUME 87.4 FL (80.0-100.0); MEAN CORPUSCULAR HEMOGLOBIN 31.8 PG (27.0-34.0); MONO % 8.3 % (0.0-8.0); NEUT % 68.3 % (16.0-70.0); PLATELET COUNT 170 TH/MM3 (150-450); RED BLOOD COUNT 3.16 MIL/MM3 (4.50-5.90); RED CELL DISTRIBUTION WIDTH 13.8 % (11.6-17.2); WHITE BLOOD COUNT 5.9 TH/MM3 (4.0-11.0)
[2017-01-07 07:45] LABS: HEMO FLAGS AUTO DIFF
[2017-01-07 08:04] LABS: BICARBONATE 27.1 MEQ/L (21.0-32.0); POTASSIUM 3.9 MEQ/L (3.5-5.1)
[2017-01-07] MEDS: TERAZOSIN HCL 5 MG CAP PO SCH (08:06)
[2017-01-07] MEDS: MULTIVITAMIN TAB PO SCH (08:06)
[2017-01-07] MEDS: FOLIC ACID 1 MG TAB PO SCH (08:06)
[2017-01-07] MEDS: ENOXAPARIN SODIUM 30 MG/0.3 ML SYRINGE SQ SCH ×2 (08:06→19:59)
[2017-01-07] MEDS: FAMOTIDINE 20 MG TAB PO SCH ×2 (08:07→19:58)
[2017-01-07] MEDS: DOCUSATE SODIUM 50 MG/SENNA 8.6 MG TAB PO SCH ×2 (08:07→19:59)
[2017-01-07] MEDS: NICOTINE 21 MG/24 HR PATCH T-DERMAL SCH (08:07)
[2017-01-07] MEDS: LIDOCAINE HCL 5% PATCH T-DERMAL SCH (08:07)
[2017-01-07] MEDS: REMOVE OLD PATCH T-DERMAL SCH (08:07)
[2017-01-07] MEDS: INDOMETHACIN 75 MG CONTROLLED RELEASE CAP PO SCH (08:07)
[2017-01-07] MEDS: SODIUM CHLORIDE 0.9% FLUSH 10 ML FLUSH IV FLUSH SCH ×2 (08:12→19:59)
[2017-01-07] MEDS: LACTULOSE SYRUP 20 GM/30 ML CUP PO SCH ×2 (08:13→12:30)
[2017-01-07 08:35] LABS: SCAN/DIFF AUTO DIFF CONFIRMED
--- NOTE | 2017-01-07 08:46 | PD.ORT.PN ---
Subjective Post Op Day #: 3 Subjective Remarks Patient standing upright at side of bed, accompanied by his . He admits left hip pain is well controlled. He states he walked successfully with assistance. Awaiting rehab placement / approval (patient reports he does not have medical insurance at this time). No new complaints noted. Objective Vitals Vital Signs Date Time Temp Pulse Resp B/P Pulse Ox O2 Delivery O2 Flow Rate FiO2 01/07/17 04:00 97.7 90 17 114/69 99 01/07/17 00:00 98.6 90 18 106/81 96 01/06/17 20:00 98.3 87 16 109/71 95 01/06/17 16:00 98.9 96 18 115/70 94 01/06/17 15:20 94 21 01/06/17 14:00 16 01/06/17 12:00 98.6 101 18 116/63 95 01/06/17 10:00 92 21 I/O 01/06/17 01/06/17 01/06/17 01/07/17 01/07/17 01/07/17 07:00 15:00 23:00 07:00 15:00 23:00 Intake Total 960 ml 720 ml 360 ml Output Total 750 ml Balance 960 ml -30 ml 360 ml Intake Oral 960 ml 720 ml 360 ml Output Urine Total 750 ml # Voids 4 2 # Bowel Movements 0 Result Diagram: 01/07/17 0726 01/07/17 0726 Imaging Last 24 hours Impressions Multiplanar Reconstruction 01/03/17 0000 Signed Impressions: Service Date/Time: Monday, January 02, 2017 21:26 - CONCLUSION: 3-D reconstructions of left pelvic fracture. Cristian Burr MD Chest X-Ray 01/03/17 0000 Signed Impressions: Service Date/Time: Tuesday, January 03, 2017 05:26 - CONCLUSION: 1. Interval development of prominent right-sided pneumothorax. Right-sided chest tube recommended. 2. Bibasilar atelectasis greater in the left lower lobe. Cristian Burr MD Thoracic Spine CT 01/02/172114 Signed Impressions: Service Date/Time: Monday, January 02, 2017 21:26 - CONCLUSION: 1. Fracture of the right posterior first rib. 2. The thoracic vertebra are intact. Basilio Nicole MD Lumbar Spine CT 01/02/172114 Signed Impressions: Service Date/Time: Monday, January 02, 2017 21:26 - CONCLUSION: 1. No evidence of fracture. 2. Grade 1 anterior spondylolisthesis of L5 on S1 of approximately 9 mm with apparent bilateral pars defects. There are mild degenerative disc changes at this level with disc bulge and narrowing of the neural foramina bilaterally. Basilio Nicole MD Pelvis X-Ray 01/02/172110 Signed Impressions: Service Date/Time: Monday, January 02, 2017 21:05 - CONCLUSION: Racture to the superior left acetabulum. Basilio Nicole MD Head CT 01/02/172110 Signed Impressions: Service Date/Time: Monday, January 02, 2017 21:21 - CONCLUSION: 1. Suboptimal study secondary to streak and mild motion artifact. 2. No acute hemorrhage or mass effect. Basilio Nicole MD Chest X-Ray 01/02/172110 Signed Impressions: Service Date/Time: Monday, January 02, 2017 21:05 - CONCLUSION: Multiple right-sided rib fractures with no visualized pneumothorax on this supine study. Basilio Nicole MD Chest CT 01/02/172110 Signed Impressions: Service Date/Time: Monday, January 02, 2017 21:26 - CONCLUSION: 1. Multiple right-sided rib fractures one of which is mildly displaced with small amount of subcutaneous air and no visualized pneumothorax. 2. Small to moderate size hiatal hernia. 3. Atelectasis in the dependent portions of the lung bases. Basilio Nicole MD Cervical Spine CT 01/02/172110 Signed Impressions: Service Date/Time: Monday, January 02, 2017 21:21 - CONCLUSION: Fracture of the right anterior first rib. The cervical spine is intact. Basilio Nicole MD Abdomen/Pelvis CT 01/02/172110 Signed Impressions: Service Date/Time: Monday, January 02, 2017 21:26 - CONCLUSION: 1. No definite evidence of visceral injury. 2. Comminuted fracture deformity of the left acetabulum. 3. Are currently enlarged bladder with trabeculation and multiple diverticuli. 4. Moderate bilateral hydronephrosis. 5. Hiatal hernia. Basilio Nicole MD Procedures Left Acetabulum Fx s/p ORIF Objective Remarks LLE: dressings clean and dry. intact. NVI with good dorsiflexion. +CKS. Assessment & Plan Ortho Post Op Day #: 3 Problem List: (1) Acetabulum fracture, left (2) Multiple fractures of ribs (3) Trauma (4) Alcohol intoxication Assessment and Plan 1) Left Acetabulum Fx s/p ORIF - POD 3 -TTWB left leg -daily dressing changes -knee brace while in bed -work with PT, toe touch w/b -plan for DC to rehab when stable and bed available -f/u [facility] or G[facility]Y in 2 weeks Vidya Perez Jan 07, 2017 08:45
[2017-01-07 09:14] LABS: BLOOD, URINE NEG (NEG); GLUCOSE,URINE NEG (NEG); HYALINE CAST, URINE 1 /lpf (RARE); KETONE, URINE NEG (NEG); NITRITE,URINE NEG (NEG); SQUAMOUS EPITHELIAL CELL URINE <1 /hpf (0-5); URINE COLOR YELLOW (YELLW/STRAW)
[2017-01-07 09:18] LABS: COMMENT (UR) CATH-CULT NOT IND; CULTURE IF INDICATED CATH CULTURE NOT IND
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
[2017-01-07] MEDS: AZITHROMYCIN INJ 500 MG in SODIUM CHLOR 0.9% 250 ML INJ 250 ML IV SCH (13:55)
[2017-01-07] MEDS: REMOVE OLD LIDODERM PATCH T-DERMAL SCH (19:59)
[2017-01-08] VITALS: BP 110/72; PULSE 91; RESP 20; TEMP 98; O2SAT 95
[2017-01-08] MEDS: PCA - TOTAL MG MORPHINE DELIVERED PER SHIFT SCH ×3 (02:01→22:00)
[2017-01-08] MEDS: ACETAMINOPHEN/HYDROcodone 325 MG/10 MG TAB PO PRN ×4 (02:08→21:10)
[2017-01-08 04:00] VITALS: BP 112/76; PULSE 84; RESP 20; TEMP 97.8; O2SAT 96
[2017-01-08] MEDS: RESP: ALBUTEROL 2.5 MG/IPRATROPIUM 0.5 MG NEB (SCH) INH ×2 (04:00→08:28)
[2017-01-08] MEDS: METHOCARBAMOL 500 MG TAB PO SCH ×3 (04:39→21:10)
[2017-01-08] MEDS: CEFEPIME INJ 2,000 MG in SODIUM CHLORIDE 0.9% INJ 100 ML IV SCH ×3 (04:40→21:09)
--- NOTE | 2017-01-08 07:30 | PD.ORT.PN ---
Subjective Subjective Remarks Resting comfortably with no new complaints. States that he is homeless and does not have a home or place to go to Objective Vitals Vital Signs Date Time Temp Pulse Resp B/P Pulse Ox O2 Delivery O2 Flow Rate FiO2 01/08/17 04:00 97.8 84 20 112/76 96 01/08/17 00:00 98.0 91 20 110/72 95 01/07/17 21:14 98 21 01/07/17 21:00 97.1 91 18 113/70 95 01/07/17 16:00 96.8 97 18 128/77 97 01/07/17 12:00 96.9 82 18 104/63 95 01/07/17 10:38 93 21 01/07/17 08:00 98.0 93 18 112/74 94 I/O 01/07/17 01/07/17 01/07/17 01/08/17 01/08/17 01/08/17 07:00 15:00 23:00 07:00 15:00 23:00 Intake Total 360 ml 960 ml 1555 ml 450 ml Balance 360 ml 960 ml 1555 ml 450 ml Intake Oral 360 ml 960 ml IV Total 1555 ml 450 ml # Voids 2 6 # Bowel Movements 0 Result Diagram: 01/07/17 0701/07/17 07 Imaging Last 24 hours Impressions Multiplanar Reconstruction 01/03/17 0000 Signed Impressions: Service Date/Time: Monday, January 02, 2017 21:26 - CONCLUSION: 3-D reconstructions of left pelvic fracture. Cristian Burr MD Chest X-Ray 01/03/17 0000 Signed Impressions: Service Date/Time: Tuesday, January 03, 2017 05:26 - CONCLUSION: 1. Interval development of prominent right-sided pneumothorax. Right-sided chest tube recommended. 2. Bibasilar atelectasis greater in the left lower lobe. Cristian Burr MD Thoracic Spine CT 01/02/172114 Signed Impressions: Service Date/Time: Monday, January 02, 2017 21:26 - CONCLUSION: 1. Fracture of the right posterior first rib. 2. The thoracic vertebra are intact. Basilio Nicole MD Lumbar Spine CT 01/02/172114 Signed Impressions: Service Date/Time: Monday, January 02, 2017 21:26 - CONCLUSION: 1. No evidence of fracture. 2. Grade 1 anterior spondylolisthesis of L5 on S1 of approximately 9 mm with apparent bilateral pars defects. There are mild degenerative disc changes at this level with disc bulge and narrowing of the neural foramina bilaterally. Basilio Nicole MD Pelvis X-Ray 01/02/172110 Signed Impressions: Service Date/Time: Monday, January 02, 2017 21:05 - CONCLUSION: Racture to the superior left acetabulum. Basilio Nicole MD Head CT 01/02/172110 Signed Impressions: Service Date/Time: Monday, January 02, 2017 21:21 - CONCLUSION: 1. Suboptimal study secondary to streak and mild motion artifact. 2. No acute hemorrhage or mass effect. Basilio Nicole MD Chest X-Ray 01/02/172110 Signed Impressions: Service Date/Time: Monday, January 02, 2017 21:05 - CONCLUSION: Multiple right-sided rib fractures with no visualized pneumothorax on this supine study. Basilio Nicole MD Chest CT 01/02/172110 Signed Impressions: Service Date/Time: Monday, January 02, 2017 21:26 - CONCLUSION: 1. Multiple right-sided rib fractures one of which is mildly displaced with small amount of subcutaneous air and no visualized pneumothorax. 2. Small to moderate size hiatal hernia. 3. Atelectasis in the dependent portions of the lung bases. Basilio Nicole MD Cervical Spine CT 01/02/172110 Signed Impressions: Service Date/Time: Monday, January 02, 2017 21:21 - CONCLUSION: Fracture of the right anterior first rib. The cervical spine is intact. Basilio Nicole MD Abdomen/Pelvis CT 01/02/172110 Signed Impressions: Service Date/Time: Monday, January 02, 2017 21:26 - CONCLUSION: 1. No definite evidence of visceral injury. 2. Comminuted fracture deformity of the left acetabulum. 3. Are currently enlarged bladder with trabeculation and multiple diverticuli. 4. Moderate bilateral hydronephrosis. 5. Hiatal hernia. Basilio Nicole MD Procedures Left Acetabulum Fx s/p ORIF Objective Remarks LLE: dressings clean and dry. intact. NVI with good dorsiflexion. +CKS. Assessment & Plan Problem List: (1) Acetabulum fracture, left (2) Multiple fractures of ribs (3) Trauma (4) Alcohol intoxication Assessment and Plan 1) Left Acetabulum Fx s/p ORIF - POD 4 -TTWB left leg -daily dressing changes, dry dressing over left hip and Xeroform over knee -knee brace while in bed Lovenox -work with PT, toe touch w/b -plan for DC to rehab when stable and bed available - no finances at this time -f/u Radha or GABY in 2 weeks Basilio Badillo Jr. Jan 08, 2017 07:30
[2017-01-08] MEDS: TERAZOSIN HCL 5 MG CAP PO SCH (07:36)
[2017-01-08] MEDS: MULTIVITAMIN TAB PO SCH (07:36)
[2017-01-08] MEDS: NICOTINE 21 MG/24 HR PATCH T-DERMAL SCH (07:36)
[2017-01-08] MEDS: FOLIC ACID 1 MG TAB PO SCH (07:36)
[2017-01-08] MEDS: ENOXAPARIN SODIUM 30 MG/0.3 ML SYRINGE SQ SCH ×2 (07:37→21:10)
[2017-01-08] MEDS: DOCUSATE SODIUM 50 MG/SENNA 8.6 MG TAB PO SCH ×2 (07:37→21:10)
[2017-01-08] MEDS: INDOMETHACIN 75 MG CONTROLLED RELEASE CAP PO SCH (07:37)
[2017-01-08] MEDS: FAMOTIDINE 20 MG TAB PO SCH ×2 (07:37→21:10)
[2017-01-08] MEDS: LACTULOSE SYRUP 20 GM/30 ML CUP PO SCH (07:37)
[2017-01-08] MEDS: SODIUM CHLORIDE 0.9% FLUSH 10 ML FLUSH IV FLUSH SCH ×2 (07:38→21:12)
[2017-01-08] MEDS: REMOVE OLD PATCH T-DERMAL SCH (07:38)
[2017-01-08] MEDS: LIDOCAINE HCL 5% PATCH T-DERMAL SCH (07:39)
[2017-01-08 08:00] VITALS: BP 151/98; PULSE 91; RESP 18; TEMP 98.2; O2SAT 96
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
[2017-01-08 12:00] VITALS: BP 114/72; PULSE 96; RESP 18; TEMP 97.2; O2SAT 92
[2017-01-08] MEDS: AZITHROMYCIN INJ 500 MG in SODIUM CHLOR 0.9% 250 ML INJ 250 ML IV SCH (14:39)
[2017-01-08 16:00] VITALS: BP 123/79; PULSE 85; RESP 18; TEMP 97.7; O2SAT 95
[2017-01-08 20:19] VITALS: BP 127/77; PULSE 87; RESP 19; TEMP 96.5; O2SAT 96
[2017-01-08] MEDS: REMOVE OLD LIDODERM PATCH T-DERMAL SCH (21:00)
[2017-01-09 00:32] VITALS: BP 114/74; PULSE 93; RESP 19; TEMP 97.6; O2SAT 95
[2017-01-09 04:00] VITALS: BP 125/82; PULSE 86; RESP 18; TEMP 97.3; O2SAT 95
[2017-01-09] MEDS: ACETAMINOPHEN/HYDROcodone 325 MG/10 MG TAB PO PRN ×3 (04:23→23:40)
[2017-01-09] MEDS: PCA - TOTAL MG MORPHINE DELIVERED PER SHIFT SCH ×3 (06:00→20:07)
[2017-01-09] MEDS: METHOCARBAMOL 500 MG TAB PO SCH ×3 (06:10→21:49)
[2017-01-09] MEDS: CEFEPIME INJ 2,000 MG in SODIUM CHLORIDE 0.9% INJ 100 ML IV SCH ×3 (06:15→21:50)
--- NOTE | 2017-01-09 06:32 | PD.ORT.PN ---
Subjective Subjective Remarks POD 5 s/p ORIF left acetabulum doing well. reports has pain but controlled. out of bed with walker. Objective Vitals Vital Signs Date Time Temp Pulse Resp B/P Pulse Ox O2 Delivery O2 Flow Rate FiO2 01/09/17 00:32 97.6 93 19 114/74 95 01/08/17 20:19 96.5 87 19 127/77 96 01/08/17 19:31 Room Air 01/08/17 16:00 97.7 85 18 123/79 95 01/08/17 12:00 97.2 96 18 114/72 92 01/08/17 09:05 18 01/08/17 08:00 98.2 91 18 151/98 96 I/O 01/08/17 01/08/17 01/08/17 01/09/17 01/09/17 01/09/17 07:00 15:00 23:00 07:00 15:00 23:00 Intake Total 450 ml 1200 ml Balance 450 ml 1200 ml Intake Oral 1200 ml IV Total 450 ml # Voids 4 # Bowel Movements 0 Result Diagram: 01/07/17 0726 01/07/17 07 Imaging Last 24 hours Impressions Multiplanar Reconstruction 01/03/17 0000 Signed Impressions: Service Date/Time: Monday, January 02, 2017 21:26 - CONCLUSION: 3-D reconstructions of left pelvic fracture. Cristian Burr MD Chest X-Ray 01/03/17 0000 Signed Impressions: Service Date/Time: Tuesday, January 03, 2017 05:26 - CONCLUSION: 1. Interval development of prominent right-sided pneumothorax. Right-sided chest tube recommended. 2. Bibasilar atelectasis greater in the left lower lobe. Cristian Burr MD Thoracic Spine CT 01/02/172114 Signed Impressions: Service Date/Time: Monday, January 02, 2017 21:26 - CONCLUSION: 1. Fracture of the right posterior first rib. 2. The thoracic vertebra are intact. Basilio Nicole MD Lumbar Spine CT 01/02/172114 Signed Impressions: Service Date/Time: Monday, January 02, 2017 21:26 - CONCLUSION: 1. No evidence of fracture. 2. Grade 1 anterior spondylolisthesis of L5 on S1 of approximately 9 mm with apparent bilateral pars defects. There are mild degenerative disc changes at this level with disc bulge and narrowing of the neural foramina bilaterally. Basilio Nicole MD Pelvis X-Ray 01/02/172110 Signed Impressions: Service Date/Time: Monday, January 02, 2017 21:05 - CONCLUSION: Racture to the superior left acetabulum. Basilio Nicole MD Head CT 01/02/172110 Signed Impressions: Service Date/Time: Monday, January 02, 2017 21:21 - CONCLUSION: 1. Suboptimal study secondary to streak and mild motion artifact. 2. No acute hemorrhage or mass effect. Basilio Nicole MD Chest X-Ray 01/02/172110 Signed Impressions: Service Date/Time: Monday, January 02, 2017 21:05 - CONCLUSION: Multiple right-sided rib fractures with no visualized pneumothorax on this supine study. Basilio Nicole MD Chest CT 01/02/172110 Signed Impressions: Service Date/Time: Monday, January 02, 2017 21:26 - CONCLUSION: 1. Multiple right-sided rib fractures one of which is mildly displaced with small amount of subcutaneous air and no visualized pneumothorax. 2. Small to moderate size hiatal hernia. 3. Atelectasis in the dependent portions of the lung bases. Basilio Nicole MD Cervical Spine CT 01/02/172110 Signed Impressions: Service Date/Time: Monday, January 02, 2017 21:21 - CONCLUSION: Fracture of the right anterior first rib. The cervical spine is intact. Basilio Nicole MD Abdomen/Pelvis CT 01/02/172110 Signed Impressions: Service Date/Time: Monday, January 02, 2017 21:26 - CONCLUSION: 1. No definite evidence of visceral injury. 2. Comminuted fracture deformity of the left acetabulum. 3. Are currently enlarged bladder with trabeculation and multiple diverticuli. 4. Moderate bilateral hydronephrosis. 5. Hiatal hernia. Basilio Nicole MD Procedures Left Acetabulum Fx s/p ORIF Objective Remarks LLE: dressings clean and dry. intact. NVI with good dorsiflexion. +CKS. Assessment & Plan Problem List: (1) Acetabulum fracture, left (2) Multiple fractures of ribs (3) Trauma (4) Alcohol intoxication Assessment and Plan 1) Left Acetabulum Fx s/p ORIF - POD 5 -TTWB left leg -daily dressing changes, dry dressing over left hip and Xeroform over knee -knee brace while in bed Lovenox -work with PT, toe touch w/b -plan for DC to rehab when stable and bed available - no finances at this time -f/u [facility] or [facility] in 2 weeks Thiago Monge Jan 09, 2017 06:32
[2017-01-09] MEDS ORDERED: BISACODYL EC 5 MG TABEC PO ONE (07:45)
[2017-01-09] MEDS ORDERED: BISACODYL 10 MG SUPP RECTAL ONE (07:45)
[2017-01-09 08:00] VITALS: BP 116/69; PULSE 97; RESP 16; TEMP 97.8; O2SAT 95
[2017-01-09] MEDS: NICOTINE 21 MG/24 HR PATCH T-DERMAL SCH (08:18)
[2017-01-09] MEDS: TERAZOSIN HCL 5 MG CAP PO SCH (08:18)
[2017-01-09] MEDS: MULTIVITAMIN TAB PO SCH (08:18)
[2017-01-09] MEDS: ENOXAPARIN SODIUM 30 MG/0.3 ML SYRINGE SQ SCH ×2 (08:18→20:01)
[2017-01-09] MEDS: DOCUSATE SODIUM 50 MG/SENNA 8.6 MG TAB PO SCH ×2 (08:18→20:02)
[2017-01-09] MEDS: FAMOTIDINE 20 MG TAB PO SCH ×2 (08:18→20:01)
[2017-01-09] MEDS: FOLIC ACID 1 MG TAB PO SCH (08:18)
[2017-01-09] MEDS: INDOMETHACIN 75 MG CONTROLLED RELEASE CAP PO SCH (08:18)
[2017-01-09] MEDS: LACTULOSE SYRUP 20 GM/30 ML CUP PO SCH (08:18)
[2017-01-09] MEDS: REMOVE OLD PATCH T-DERMAL SCH (08:19)
[2017-01-09] MEDS: SODIUM CHLORIDE 0.9% FLUSH 10 ML FLUSH IV FLUSH SCH ×2 (08:19→20:02)
[2017-01-09] MEDS: LIDOCAINE HCL 5% PATCH T-DERMAL SCH (08:20)
[2017-01-09] MEDS: POLYETHYLENE GLYCOL 17 GM PKG PO SCH (08:23)
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
[2017-01-09 12:00] VITALS: BP 113/70; PULSE 81; RESP 16; TEMP 98; O2SAT 96
[2017-01-09] MEDS: AZITHROMYCIN INJ 500 MG in SODIUM CHLOR 0.9% 250 ML INJ 250 ML IV SCH (13:51)
[2017-01-09 16:30] VITALS: BP 119/73; PULSE 94; RESP 16; TEMP 96.8; O2SAT 96
[2017-01-09 20:00] VITALS: BP 129/83; PULSE 88; RESP 17; TEMP 97.7; O2SAT 96
[2017-01-09] MEDS: REMOVE OLD LIDODERM PATCH T-DERMAL SCH (20:06)
[2017-01-10 00:30] VITALS: BP 148/78; PULSE 89; RESP 18; TEMP 97.3; O2SAT 98
[2017-01-10] MEDS: METHOCARBAMOL 500 MG TAB PO SCH ×3 (05:41→20:50)
[2017-01-10] MEDS: CEFEPIME INJ 2,000 MG in SODIUM CHLORIDE 0.9% INJ 100 ML IV SCH ×3 (05:43→20:53)
[2017-01-10] MEDS: ACETAMINOPHEN/HYDROcodone 325 MG/10 MG TAB PO PRN ×3 (05:51→18:19)
[2017-01-10] MEDS: PCA - TOTAL MG MORPHINE DELIVERED PER SHIFT SCH ×3 (05:58→22:00)
[2017-01-10 08:00] VITALS: BP 116/73; PULSE 81; RESP 18; TEMP 97.3; O2SAT 95
[2017-01-10] MEDS: LACTULOSE SYRUP 20 GM/30 ML CUP PO SCH (08:50)
[2017-01-10] MEDS: DOCUSATE SODIUM 50 MG/SENNA 8.6 MG TAB PO SCH ×2 (08:50→20:54)
[2017-01-10] MEDS: FAMOTIDINE 20 MG TAB PO SCH ×2 (08:50→20:50)
[2017-01-10] MEDS: ENOXAPARIN SODIUM 30 MG/0.3 ML SYRINGE SQ SCH ×2 (08:50→20:51)
[2017-01-10] MEDS: MULTIVITAMIN TAB PO SCH (08:50)
[2017-01-10] MEDS: FOLIC ACID 1 MG TAB PO SCH (08:50)
[2017-01-10] MEDS: INDOMETHACIN 75 MG CONTROLLED RELEASE CAP PO SCH (08:50)
[2017-01-10] MEDS: POLYETHYLENE GLYCOL 17 GM PKG PO SCH (08:50)
[2017-01-10] MEDS: NICOTINE 21 MG/24 HR PATCH T-DERMAL SCH (08:50)
[2017-01-10] MEDS: LIDOCAINE HCL 5% PATCH T-DERMAL SCH ×2 (08:51→09:00)
[2017-01-10] MEDS: SODIUM CHLORIDE 0.9% FLUSH 10 ML FLUSH IV FLUSH SCH ×2 (08:58→20:54)
[2017-01-10] MEDS: REMOVE OLD PATCH T-DERMAL SCH (09:00)
[2017-01-10] MEDS: TERAZOSIN HCL 5 MG CAP PO SCH (10:53)
[2017-01-10 12:00] VITALS: BP 117/69; PULSE 82; RESP 18; TEMP 97.5; O2SAT 95
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
[2017-01-10] MEDS: AZITHROMYCIN INJ 500 MG in SODIUM CHLOR 0.9% 250 ML INJ 250 ML IV SCH ×2 (15:07→17:08)
[2017-01-10 16:15] VITALS: BP 118/75; PULSE 83; RESP 15; TEMP 97; O2SAT 97
[2017-01-10 19:48] VITALS: BP 118/82; PULSE 93; RESP 15; TEMP 97.1; O2SAT 97
[2017-01-10] MEDS: REMOVE OLD LIDODERM PATCH T-DERMAL SCH (20:55)
[2017-01-11 00:12] VITALS: BP 107/69; PULSE 85; RESP 17; TEMP 97.8; O2SAT 95
[2017-01-11] MEDS: ACETAMINOPHEN/HYDROcodone 325 MG/10 MG TAB PO PRN ×3 (00:55→17:49)
[2017-01-11] MEDS: PCA - TOTAL MG MORPHINE DELIVERED PER SHIFT SCH ×3 (05:32→22:00)
[2017-01-11] MEDS: METHOCARBAMOL 500 MG TAB PO SCH ×3 (05:40→22:55)
[2017-01-11] MEDS: CEFEPIME INJ 2,000 MG in SODIUM CHLORIDE 0.9% INJ 100 ML IV SCH (05:42)
[2017-01-11 08:00] VITALS: BP 117/70; PULSE 81; RESP 18; TEMP 97.5; O2SAT 94
[2017-01-11] MEDS: REMOVE OLD PATCH T-DERMAL SCH (08:41)
[2017-01-11] MEDS: NICOTINE 21 MG/24 HR PATCH T-DERMAL SCH (08:41)
[2017-01-11] MEDS: ENOXAPARIN SODIUM 30 MG/0.3 ML SYRINGE SQ SCH ×2 (08:42→20:51)
[2017-01-11] MEDS: TERAZOSIN HCL 5 MG CAP PO SCH (08:42)
[2017-01-11] MEDS: INDOMETHACIN 75 MG CONTROLLED RELEASE CAP PO SCH (08:42)
[2017-01-11] MEDS: FAMOTIDINE 20 MG TAB PO SCH ×2 (08:42→20:52)
[2017-01-11] MEDS: MULTIVITAMIN TAB PO SCH (08:43)
[2017-01-11] MEDS: LIDOCAINE HCL 5% PATCH T-DERMAL SCH (08:43)
[2017-01-11] MEDS: FOLIC ACID 1 MG TAB PO SCH (08:43)
[2017-01-11] MEDS: LACTULOSE SYRUP 20 GM/30 ML CUP PO SCH (08:44)
[2017-01-11] MEDS: DOCUSATE SODIUM 50 MG/SENNA 8.6 MG TAB PO SCH ×2 (08:44→20:52)
[2017-01-11] MEDS: POLYETHYLENE GLYCOL 17 GM PKG PO SCH (08:44)
[2017-01-11] MEDS: SODIUM CHLORIDE 0.9% FLUSH 10 ML FLUSH IV FLUSH SCH ×2 (08:44→22:59)
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
[2017-01-11 12:00] VITALS: BP 124/74; PULSE 82; RESP 18; TEMP 96.9; O2SAT 97
[2017-01-11] MEDS: fentaNYL 25 MCG/HR PATCH T-DERMAL SCH (12:16)
[2017-01-11 16:15] VITALS: BP 146/82; PULSE 93; RESP 18; TEMP 97.7
[2017-01-11 18:38] VITALS: BP 117/72; PULSE 80; RESP 18; TEMP 97.6; O2SAT 97
[2017-01-11 20:15] VITALS: BP 106/62; PULSE 84; RESP 16; TEMP 97.2; O2SAT 96
[2017-01-11] MEDS: REMOVE OLD LIDODERM PATCH T-DERMAL SCH (20:52)
[2017-01-12] VITALS: BP 115/74; PULSE 88; RESP 16; TEMP 97.3; O2SAT 96
[2017-01-12] MEDS: METHOCARBAMOL 500 MG TAB PO SCH ×3 (05:55→22:22)
[2017-01-12] MEDS: PCA - TOTAL MG MORPHINE DELIVERED PER SHIFT SCH ×3 (06:00→22:00)
[2017-01-12] MEDS: ACETAMINOPHEN/HYDROcodone 325 MG/10 MG TAB PO PRN ×2 (06:07→13:43)
[2017-01-12 08:00] VITALS: BP 109/69; PULSE 78; RESP 17; TEMP 97.2; O2SAT 95
[2017-01-12] MEDS: ENOXAPARIN SODIUM 30 MG/0.3 ML SYRINGE SQ SCH ×2 (08:49→22:22)
[2017-01-12] MEDS: INDOMETHACIN 75 MG CONTROLLED RELEASE CAP PO SCH (08:49)
[2017-01-12] MEDS: LACTULOSE SYRUP 20 GM/30 ML CUP PO SCH (08:49)
[2017-01-12] MEDS: POLYETHYLENE GLYCOL 17 GM PKG PO SCH (08:49)
[2017-01-12] MEDS: TERAZOSIN HCL 5 MG CAP PO SCH (08:49)
[2017-01-12] MEDS: FOLIC ACID 1 MG TAB PO SCH (08:49)
[2017-01-12] MEDS: MULTIVITAMIN TAB PO SCH (08:49)
[2017-01-12] MEDS: REMOVE OLD PATCH T-DERMAL SCH (08:50)
[2017-01-12] MEDS: DOCUSATE SODIUM 50 MG/SENNA 8.6 MG TAB PO SCH ×2 (08:50→22:22)
[2017-01-12] MEDS: FAMOTIDINE 20 MG TAB PO SCH ×2 (08:50→22:22)
[2017-01-12] MEDS: SODIUM CHLORIDE 0.9% FLUSH 10 ML FLUSH IV FLUSH SCH ×2 (08:50→22:22)
[2017-01-12] MEDS: NICOTINE 21 MG/24 HR PATCH T-DERMAL SCH (08:50)
[2017-01-12] MEDS: LIDOCAINE HCL 5% PATCH T-DERMAL SCH (08:50)
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
[2017-01-12 12:00] VITALS: BP 115/64; PULSE 85; RESP 18; TEMP 97.7; O2SAT 95
[2017-01-12 16:00] VITALS: BP 138/100; PULSE 90; RESP 19; TEMP 96.6; O2SAT 98
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
[2017-01-12 19:00] VITALS: BP 117/72; PULSE 95; RESP 19; TEMP 98; O2SAT 95
[2017-01-12] MEDS: REMOVE OLD LIDODERM PATCH T-DERMAL SCH (22:22)
[2017-01-13 02:12] VITALS: BP 118/72; PULSE 86; RESP 16; TEMP 98.1; O2SAT 95
[2017-01-13 04:00] VITALS: BP 118/69; PULSE 81; RESP 17; TEMP 97.8; O2SAT 95
[2017-01-13] MEDS: METHOCARBAMOL 500 MG TAB PO SCH ×2 (05:48→22:21)
[2017-01-13 05:54] LABS: AUTOMATED NEUTROPHIL # 5.1 TH/MM3 (1.8-7.7); BASOPHIL # 0.1 TH/MM3 (0-0.2); EOSINOPHIL # 0.2 TH/MM3 (0-0.4); EOSINOPHIL % 2.4 % (0.0-4.0); HEMATOCRIT 30.8 % (39.0-51.0); HEMO FLAGS DIFF FINAL; LYMPH % 20.5 % (9.0-44.0); LYMPHOCYTE # 1.6 TH/MM3 (1.0-4.8); MEAN CELL VOLUME 90.3 FL (80.0-100.0); MEAN CORPUSCULAR HEMOGLOBIN 31.6 PG (27.0-34.0); MONO % 8.8 % (0.0-8.0); NEUT % 67.3 % (16.0-70.0); PLATELET COUNT 263 TH/MM3 (150-450); RED BLOOD COUNT 3.41 MIL/MM3 (4.50-5.90); RED CELL DISTRIBUTION WIDTH 14.6 % (11.6-17.2); WHITE BLOOD COUNT 7.6 TH/MM3 (4.0-11.0)
[2017-01-13] MEDS: PCA - TOTAL MG MORPHINE DELIVERED PER SHIFT SCH ×3 (06:00→20:52)
[2017-01-13] MEDS: ACETAMINOPHEN/HYDROcodone 325 MG/10 MG TAB PO PRN ×3 (06:01→20:50)
[2017-01-13 06:41] LABS: ALKALINE PHOSPHATASE 112 U/L (45-117); ALT (GPT) 54 U/L (12-78); ANION GAP 7 MEQ/L (5-15); AST (GOT) 51 U/L (15-37); BICARBONATE 26.1 MEQ/L (21.0-32.0); BLOOD UREA NITROGEN 21 MG/DL (7-18); CHLORIDE 105 MEQ/L (98-107); GLOMERULAR FILTRATION RATE 60 ML/MIN (>89); POTASSIUM 4.8 MEQ/L (3.5-5.1); SODIUM (NA) 138 MEQ/L (136-145); TOTAL BILIRUBIN ADULT 0.7 MG/DL (0.2-1.0)
[2017-01-13 08:00] VITALS: BP 103/69; PULSE 90; RESP 18; TEMP 97.3; O2SAT 96
[2017-01-13] MEDS: LACTULOSE SYRUP 20 GM/30 ML CUP PO SCH (08:10)
[2017-01-13] MEDS: POLYETHYLENE GLYCOL 17 GM PKG PO SCH (08:10)
[2017-01-13] MEDS: ENOXAPARIN SODIUM 30 MG/0.3 ML SYRINGE SQ SCH ×2 (08:10→20:51)
[2017-01-13] MEDS: TERAZOSIN HCL 5 MG CAP PO SCH (08:11)
[2017-01-13] MEDS: LIDOCAINE HCL 5% PATCH T-DERMAL SCH (08:11)
[2017-01-13] MEDS: FAMOTIDINE 20 MG TAB PO SCH ×2 (08:11→20:50)
[2017-01-13] MEDS: MULTIVITAMIN TAB PO SCH (08:11)
[2017-01-13] MEDS: INDOMETHACIN 75 MG CONTROLLED RELEASE CAP PO SCH (08:11)
[2017-01-13] MEDS: FOLIC ACID 1 MG TAB PO SCH (08:11)
[2017-01-13] MEDS: NICOTINE 21 MG/24 HR PATCH T-DERMAL SCH (08:11)
[2017-01-13] MEDS: DOCUSATE SODIUM 50 MG/SENNA 8.6 MG TAB PO SCH ×2 (08:11→20:50)
[2017-01-13] MEDS: SODIUM CHLORIDE 0.9% FLUSH 10 ML FLUSH IV FLUSH SCH ×2 (08:12→21:00)
[2017-01-13] MEDS: REMOVE OLD PATCH T-DERMAL SCH (08:12)
[2017-01-13] MEDS: fentaNYL 25 MCG/HR PATCH T-DERMAL SCH ×2 (11:55→12:00)
[2017-01-13 12:00] VITALS: BP 114/74; PULSE 86; RESP 17; TEMP 97.8; O2SAT 96
[2017-01-13] MEDS: REMOVE OLD DURAGESIC (FENTANYL) PATCH T-DERMAL SCH (12:00)
--- NOTE | 2017-01-13 12:59 | HHI.PR ---
Subjective Subjective Notes Feels well. No complaints. Objective Vitals/I&O Vital Signs Date Time Temp Pulse Resp B/P Pulse Ox O2 Delivery O2 Flow Rate FiO2 01/13/17 08:00 97.3 90 18 103/69 96 01/10/17 18:56 Room Air Labs Laboratory Tests Test 01/13/17 05:09 White Blood Count 7.6 Red Blood Count 3.41 Hemoglobin 10.8 Hematocrit 30.8 Mean Corpuscular Volume 90.3 Mean Corpuscular Hemoglobin 31.6 Mean Corpuscular Hemoglobin 35.0 Concent Red Cell Distribution Width 14.6 Platelet Count 263 Mean Platelet Volume 7.8 Neutrophils (%) (Auto) 67.3 Lymphocytes (%) (Auto) 20.5 Monocytes (%) (Auto) 8.8 Eosinophils (%) (Auto) 2.4 Basophils (%) (Auto) 1.0 Neutrophils # (Auto) 5.1 Lymphocytes # (Auto) 1.6 Monocytes # (Auto) 0.7 Eosinophils # (Auto) 0.2 Basophils # (Auto) 0.1 CBC Comment DIFF FINAL Differential Comment Sodium Level 138 Potassium Level 4.8 Chloride Level 105 Carbon Dioxide Level 26.1 Anion Gap 7 Blood Urea Nitrogen 21 Creatinine 1.23 Estimat Glomerular Filtration 60 Rate Random Glucose 105 Calcium Level 8.8 Total Bilirubin 0.7 Aspartate Amino Transf 51 (AST/SGOT) Alanine Aminotransferase 54 (ALT/SGPT) Alkaline Phosphatase 112 Total Protein 6.6 Albumin 3.0 Radiology Last Impressions Chest X-Ray 01/05/17 0600 Signed Impressions: Service Date/Time: Thursday, January 05, 2017 06:48 - CONCLUSION: 1. Right chest tube remains present and no pneumothorax is visualized. 2. There is atelectasis versus consolidation in the left lower lobe. David Olmos MD Pelvis X-Ray 01/04/17 0000 Signed Impressions: Service Date/Time: December 09:20 - CONCLUSION: Satisfactory fracture fragment alignment following ORIF of a comminuted left acetabular fracture. Hosea Rodney MD Multiplanar Reconstruction 01/03/17 0000 Signed Impressions: Service Date/Time: Monday, January 02, 2017 21:26 - CONCLUSION: 3-D reconstructions of left pelvic fracture. Cristian Burr MD Chest Tube Insertion 01/03/17 0000 Signed Impressions: Service Date/Time: Tuesday, January 03, 2017 13:45 - CONCLUSION: Uncomplicated chest tube placement as above. David Aguilar MD Thoracic Spine CT 01/02/172114 Signed Impressions: Service Date/Time: Monday, January 02, 2017 21:26 - CONCLUSION: 1. Fracture of the right posterior first rib. 2. The thoracic vertebra are intact. Basilio Nicole MD Lumbar Spine CT 01/02/172114 Signed Impressions: Service Date/Time: Monday, January 02, 2017 21:26 - CONCLUSION: 1. No evidence of fracture. 2. Grade 1 anterior spondylolisthesis of L5 on S1 of approximately 9 mm with apparent bilateral pars defects. There are mild degenerative disc changes at this level with disc bulge and narrowing of the neural foramina bilaterally. Basilio Nicole MD Head CT 01/02/172110 Signed Impressions: Service Date/Time: Monday, January 02, 2017 21:21 - CONCLUSION: 1. Suboptimal study secondary to streak and mild motion artifact. 2. No acute hemorrhage or mass effect. Basilio Nicole MD Chest CT 01/02/172110 Signed Impressions: Service Date/Time: Monday, January 02, 2017 21:26 - CONCLUSION: 1. Multiple right-sided rib fractures one of which is mildly displaced with small amount of subcutaneous air and no visualized pneumothorax. 2. Small to moderate size hiatal hernia. 3. Atelectasis in the dependent portions of the lung bases. Basilio Nicole MD Cervical Spine CT 01/02/172110 Signed Impressions: Service Date/Time: Monday, January 02, 2017 21:21 - CONCLUSION: Fracture of the right anterior first rib. The cervical spine is intact. Basilio Nicole MD Abdomen/Pelvis CT 01/02/172110 Signed Impressions: Service Date/Time: Monday, January 02, 2017 21:26 - CONCLUSION: 1. No definite evidence of visceral injury. 2. Comminuted fracture deformity of the left acetabulum. 3. Are currently enlarged bladder with trabeculation and multiple diverticuli. 4. Moderate bilateral hydronephrosis. 5. Hiatal hernia. Basilio Nicole MD Knee X-Ray 01/02/17 0000 Signed Impressions: Service Date/Time: Monday, January 02, 2017 21:05 - CONCLUSION: Anterior soft tissue swelling and irregularity with no definite acute fracture or malalignment on this 2 view study. Basilio Nicole MD Narrative Exam GENERAL: 61-year-old well-nourished well-developed male lying in bed. SKIN: Warm and dry. HEAD: Normocephalic. ENT: No nasal bleeding or discharge. Mucous membranes pink and moist. NECK: Trachea midline. No JVD. CARDIOVASCULAR: Regular rate and rhythm. RESPIRATORY: No accessory muscle use. Lungs are clear and diminished to auscultation bilaterally. No distress or dyspnea. GASTROINTESTINAL: Abdomen soft, non-tender, nondistended. + BS. MUSCULOSKELETAL: Extremities without cyanosis, or edema. MAEW. NEUROLOGICAL: Alert and oriented. Normal speech and pattern. A/P Problem List: (1) Alcohol intoxication (2) Trauma (3) Multiple fractures of ribs (4) Acetabulum fracture, left Assessment and Plan INJURIES: RIGHT rib fxs (multiple) RIGHT PTX with CT placement LEFT acetabulum fx LEFT knee lac Aspiration Procedures: 01/03: RIGHT chest tube placed by IR 01/04: ORIF LEFT acetabulum 01/05: Chest tube removed by IR. Diet: Regular diet, tolerating. Pulmonary: IS and acapella. Encouraged patient use. Pain Management: [place] 1-2 tabs, Morphine IV for breakthrough pain, Robaxin, Lidoderm patch, Fentanyl patch. Pain controlled Activity: OOB. PT and OT evaluating. (TTWB LLE). PT/OT 7 days a week. GI prophylaxis: Pepcid Bowel regimen: Amparo-Colace. Lactulose. MiraLAX daily. LBM: 01/10 DVT prophylaxis: SCDs, Lovenox 30 BID Orthopedics cleared for discharge. Case management consulted to assist with discharge planning. Patient has no payer source. Plan to discharge home if patient progresses well enough with physical therapy in the next few days. Plan of care discussed with patient at bedside. Attending Statement GCS15, awake and alert, no new c/o, working with PT, needs placement/rehab The exam, history, and the medical decision-making described in the above note were completed with the assistance of the mid-level provider. I reviewed and agree with the findings presented. I attest that I had a [id number] encounter with the patient on the same day, and personally performed and documented my assessment and findings in the medical record. Problem Qualifiers (1) Multiple fractures of ribs: Qualified Code: S22.41XA - Closed fracture of multiple ribs of right side, initial encounter (2) Acetabulum fracture, left: Rosario Nuñez Jan 13, 2017 12:58 Meliton Patel MD Jan 13, 2017 23:11
[2017-01-13 16:00] VITALS: BP 97/67; PULSE 85; RESP 18; TEMP 98.1; O2SAT 96
[2017-01-13 20:00] VITALS: BP 118/71; PULSE 91; RESP 20; TEMP 97.2; O2SAT 96
[2017-01-13] MEDS: REMOVE OLD LIDODERM PATCH T-DERMAL SCH (21:00)
[2017-01-14] VITALS: BP 114/66; PULSE 86; RESP 20; TEMP 97.9; O2SAT 96
[2017-01-14] MEDS: METHOCARBAMOL 500 MG TAB PO SCH ×3 (05:43→21:45)
[2017-01-14] MEDS: PCA - TOTAL MG MORPHINE DELIVERED PER SHIFT SCH (05:46)
[2017-01-14 08:00] VITALS: BP 121/79; PULSE 85; RESP 18; TEMP 97.5; O2SAT 95
[2017-01-14] MEDS: DOCUSATE SODIUM 50 MG/SENNA 8.6 MG TAB PO SCH ×2 (08:18→21:45)
[2017-01-14] MEDS: TERAZOSIN HCL 5 MG CAP PO SCH (08:18)
[2017-01-14] MEDS: FAMOTIDINE 20 MG TAB PO SCH ×2 (08:18→21:45)
[2017-01-14] MEDS: MULTIVITAMIN TAB PO SCH (08:18)
[2017-01-14] MEDS: LACTULOSE SYRUP 20 GM/30 ML CUP PO SCH (08:18)
[2017-01-14] MEDS: FOLIC ACID 1 MG TAB PO SCH (08:18)
[2017-01-14] MEDS: ENOXAPARIN SODIUM 30 MG/0.3 ML SYRINGE SQ SCH ×2 (08:18→21:45)
[2017-01-14] MEDS: NICOTINE 21 MG/24 HR PATCH T-DERMAL SCH (08:19)
[2017-01-14] MEDS: INDOMETHACIN 75 MG CONTROLLED RELEASE CAP PO SCH (08:19)
[2017-01-14] MEDS: ACETAMINOPHEN/HYDROcodone 325 MG/10 MG TAB PO PRN ×3 (08:19→21:48)
[2017-01-14] MEDS: POLYETHYLENE GLYCOL 17 GM PKG PO SCH (08:19)
[2017-01-14] MEDS: REMOVE OLD PATCH T-DERMAL SCH (08:20)
[2017-01-14] MEDS: SODIUM CHLORIDE 0.9% FLUSH 10 ML FLUSH IV FLUSH SCH ×2 (08:20→21:00)
[2017-01-14] MEDS: LIDOCAINE HCL 5% PATCH T-DERMAL SCH (08:20)
[2017-01-14 12:00] VITALS: BP 111/66; PULSE 83; RESP 18; TEMP 97.8; O2SAT 96
[2017-01-14] MEDS ORDERED: REMOVE OLD DURAGESIC (FENTANYL) PATCH T-DERMAL SCH (12:00)
--- NOTE | 2017-01-14 12:58 | HHI.PR ---
Subjective Subjective Notes Reports the pain much better with Fentanyl patch No complaints Objective Vitals/I&O Vital Signs Date Time Temp Pulse Resp B/P Pulse Ox O2 Delivery O2 Flow Rate FiO2 01/14/17 08:00 97.5 85 18 121/79 95 01/10/17 18:56 Room Air Radiology Last Impressions Chest X-Ray 01/05/17 0600 Signed Impressions: Service Date/Time: Thursday, January 05, 2017 06:48 - CONCLUSION: 1. Right chest tube remains present and no pneumothorax is visualized. 2. There is atelectasis versus consolidation in the left lower lobe. David Olmos MD Pelvis X-Ray 01/04/17 0000 Signed Impressions: Service Date/Time: December 09:20 - CONCLUSION: Satisfactory fracture fragment alignment following ORIF of a comminuted left acetabular fracture. Hosea Rodney MD Multiplanar Reconstruction 01/03/17 0000 Signed Impressions: Service Date/Time: Monday, January 02, 2017 21:26 - CONCLUSION: 3-D reconstructions of left pelvic fracture. Cristian Burr MD Chest Tube Insertion 01/03/17 0000 Signed Impressions: Service Date/Time: Tuesday, January 03, 2017 13:45 - CONCLUSION: Uncomplicated chest tube placement as above. David Aguilar MD Thoracic Spine CT 01/02/172114 Signed Impressions: Service Date/Time: Monday, January 02, 2017 21:26 - CONCLUSION: 1. Fracture of the right posterior first rib. 2. The thoracic vertebra are intact. Basilio Nicole MD Lumbar Spine CT 01/02/172114 Signed Impressions: Service Date/Time: Monday, January 02, 2017 21:26 - CONCLUSION: 1. No evidence of fracture. 2. Grade 1 anterior spondylolisthesis of L5 on S1 of approximately 9 mm with apparent bilateral pars defects. There are mild degenerative disc changes at this level with disc bulge and narrowing of the neural foramina bilaterally. Basilio Nicole MD Head CT 01/02/172110 Signed Impressions: Service Date/Time: Monday, January 02, 2017 21:21 - CONCLUSION: 1. Suboptimal study secondary to streak and mild motion artifact. 2. No acute hemorrhage or mass effect. Basilio Nicole MD Chest CT 01/02/172110 Signed Impressions: Service Date/Time: Monday, January 02, 2017 21:26 - CONCLUSION: 1. Multiple right-sided rib fractures one of which is mildly displaced with small amount of subcutaneous air and no visualized pneumothorax. 2. Small to moderate size hiatal hernia. 3. Atelectasis in the dependent portions of the lung bases. Basilio Nicole MD Cervical Spine CT 01/02/172110 Signed Impressions: Service Date/Time: Monday, January 02, 2017 21:21 - CONCLUSION: Fracture of the right anterior first rib. The cervical spine is intact. Basilio Nicole MD Abdomen/Pelvis CT 01/02/172110 Signed Impressions: Service Date/Time: Monday, January 02, 2017 21:26 - CONCLUSION: 1. No definite evidence of visceral injury. 2. Comminuted fracture deformity of the left acetabulum. 3. Are currently enlarged bladder with trabeculation and multiple diverticuli. 4. Moderate bilateral hydronephrosis. 5. Hiatal hernia. Basilio Nicole MD Knee X-Ray 01/02/17 0000 Signed Impressions: Service Date/Time: Monday, January 02, 2017 21:05 - CONCLUSION: Anterior soft tissue swelling and irregularity with no definite acute fracture or malalignment on this 2 view study. Basilio Nicole MD Narrative Exam GENERAL: 61-year-old well-nourished well-developed male lying in bed. SKIN: Warm and dry. HEAD: Normocephalic. ENT: No nasal bleeding or discharge. Mucous membranes pink and moist. NECK: Trachea midline. No JVD. CARDIOVASCULAR: Regular rate and rhythm. RESPIRATORY: No accessory muscle use. Lungs are clear and diminished to auscultation bilaterally. No distress or dyspnea. GASTROINTESTINAL: Abdomen soft, non-tender, nondistended. + BS. MUSCULOSKELETAL: Extremities without cyanosis, or edema. MAEW. NEUROLOGICAL: Alert and oriented. Normal speech and pattern. A/P Problem List: (1) Alcohol intoxication (2) Trauma (3) Multiple fractures of ribs (4) Acetabulum fracture, left Assessment and Plan INJURIES: RIGHT rib fxs (multiple) RIGHT PTX with CT placement LEFT acetabulum fx LEFT knee lac Aspiration Procedures: 01/03: RIGHT chest tube placed by IR 01/04: ORIF LEFT acetabulum 01/05: Chest tube removed by IR. Diet: Regular diet, tolerating. Pulmonary: IS and acapella. Encouraged patient use. Pain Management: [place] 1-2 tabs, Robaxin, Lidoderm patch, Fentanyl patch. Pain controlled. Discontinued IV Morphine. Activity: OOB. PT and OT evaluating. (TTWB LLE). PT/OT 7 days a week. Ambulating with stand by assist and transferring o wheelchair. GI prophylaxis: Pepcid Bowel regimen: Amparo-Colace. Lactulose. MiraLAX daily. LBM: 01/13 DVT prophylaxis: SCDs, Lovenox 30 BID Orthopedics cleared for discharge. Case management consulted to assist with discharge planning. Patient has no payer source. Plan to discharge home if patient progresses well enough with physical therapy in the next few days. [facility] plans [facility] upon discharge. Patient states he has access to a wheelchair at the [facility] he can use. OK to discharge to [facility] when deemed safe by PT. Wheeled walker ordered. Plan of care discussed with patient at bedside. Problem Qualifiers (1) Multiple fractures of ribs: Qualified Code: S22.41XA - Closed fracture of multiple ribs of right side, initial encounter (2) Acetabulum fracture, left: Rosario Nuñez Jan 14, 2017 12:58
[2017-01-14 16:00] VITALS: BP 105/66; PULSE 92; RESP 18; TEMP 98; O2SAT 94
[2017-01-14 20:20] VITALS: BP 111/71; PULSE 90; RESP 17; TEMP 97.8; O2SAT 96
[2017-01-14] MEDS: REMOVE OLD LIDODERM PATCH T-DERMAL SCH (21:00)
[2017-01-15 00:35] VITALS: BP 117/72; PULSE 82; RESP 17; TEMP 97.6; O2SAT 96
[2017-01-15] MEDS: ACETAMINOPHEN/HYDROcodone 325 MG/10 MG TAB PO PRN ×3 (06:11→19:50)
[2017-01-15] MEDS: METHOCARBAMOL 500 MG TAB PO SCH ×3 (06:11→22:45)
[2017-01-15 07:59] VITALS: BP 140/77; PULSE 84; RESP 18; TEMP 97.3; O2SAT 94
[2017-01-15] MEDS: POLYETHYLENE GLYCOL 17 GM PKG PO SCH (08:55)
[2017-01-15] MEDS: LIDOCAINE HCL 5% PATCH T-DERMAL SCH (08:56)
[2017-01-15] MEDS: ENOXAPARIN SODIUM 30 MG/0.3 ML SYRINGE SQ SCH ×2 (08:56→19:50)
[2017-01-15] MEDS: NICOTINE 21 MG/24 HR PATCH T-DERMAL SCH (08:56)
[2017-01-15] MEDS: REMOVE OLD PATCH T-DERMAL SCH (08:56)
[2017-01-15] MEDS: FOLIC ACID 1 MG TAB PO SCH (08:57)
[2017-01-15] MEDS: FAMOTIDINE 20 MG TAB PO SCH ×2 (08:57→19:50)
[2017-01-15] MEDS: MULTIVITAMIN TAB PO SCH (08:57)
[2017-01-15] MEDS: DOCUSATE SODIUM 50 MG/SENNA 8.6 MG TAB PO SCH ×2 (08:57→19:50)
[2017-01-15] MEDS: LACTULOSE SYRUP 20 GM/30 ML CUP PO SCH (08:57)
[2017-01-15] MEDS: INDOMETHACIN 75 MG CONTROLLED RELEASE CAP PO SCH (08:57)
[2017-01-15] MEDS: TERAZOSIN HCL 5 MG CAP PO SCH (08:57)
[2017-01-15] MEDS: SODIUM CHLORIDE 0.9% FLUSH 10 ML FLUSH IV FLUSH SCH ×2 (09:00→19:50)
[2017-01-15] MEDS ORDERED: METH500T3 PO (11:04)
[2017-01-15] MEDS ORDERED: TERA5CAP3 PO (11:04)
--- NOTE | 2017-01-15 11:15 | HHI.PR ---
Neuropsych Progress Notes/Response to Tx Premorbid psychological status Premorbid Cognitive, Emotional and Behavioral Status: Unstable. The patient has a marginal educational history, inconsistent work history, multiple incarcerations in prisons in five states, and a longstanding chronic substance abuse history. He is presently homeless, and he and his girlfriend are living in the patient's room at present. Behavioral Reactions of Patient and Family/Support System: Unstable. The patient and his girlfriend are experiencing longstanding coping issues, and this aspect of recovery will require ongoing monitoring. Emotional/Behavioral Status of Patient and Family/Support System: Unstable. Pertinent issues, if appropriate to this patients clinical care, are described in detail above. Maximizing acute care outcome It is recommended that the patient be monitored for system splitting amongst staff, manipulative behaviors and attempts at medical noncompliance. Anticipated Problems The issues that this patient may experience during his stay will be related to an underlying longstanding pattern of characterological maladjustment consistent with an antisocial personality disorder. Treatment Plan This clinician was asked to opine regarding underlying neurocognitive deficit. It is recommended that he be referred to a substance dependence program to facilitate his adjustment post hospitalization. Diagnosis: (1) Alcohol dependence in controlled environment Status: Acute (2) Antisocial personality disorder in adult Status: Acute Progress Note Narrative Ongoing follow-up of patient who was seen bedside. This patient is requesting counseling services on discharge in order to document participation to facilitate reinstatement of his SSDI. I informed the patient that I do not have knowledge of such resources, particularly in light of the tenuous nature of where he may be discharging to following this inpatient stay. I made suggestion of continuation of AA/NA, and he indicated that such participation would not be sufficient documentation of therapy participation. At this point, I have no more to offer. Peterson Gibson PhD Jan 15, 2017 11:15 am
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
[2017-01-15 12:00] VITALS: BP 119/78; PULSE 102; RESP 18; TEMP 97; O2SAT 97
[2017-01-15] MEDS ORDERED: XARE20TA PO (12:26)
[2017-01-15 16:00] VITALS: BP 109/71; PULSE 88; RESP 18; TEMP 97.6; O2SAT 96
[2017-01-15] MEDS: REMOVE OLD LIDODERM PATCH T-DERMAL SCH (19:50)
[2017-01-15 20:25] VITALS: BP 111/72; PULSE 73; RESP 17; TEMP 98; O2SAT 100
[2017-01-16 00:45] VITALS: BP 127/81; PULSE 95; RESP 17; TEMP 96.7; O2SAT 95
[2017-01-16] MEDS: METHOCARBAMOL 500 MG TAB PO SCH ×3 (05:59→23:11)
[2017-01-16] MEDS: ACETAMINOPHEN/HYDROcodone 325 MG/10 MG TAB PO PRN ×3 (06:00→19:35)
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
[2017-01-16 08:04] VITALS: BP 123/81; PULSE 80; RESP 18; TEMP 97.2; O2SAT 97
[2017-01-16] MEDS: LIDOCAINE HCL 5% PATCH T-DERMAL SCH (08:37)
[2017-01-16] MEDS: INDOMETHACIN 75 MG CONTROLLED RELEASE CAP PO SCH (08:40)
[2017-01-16] MEDS: POLYETHYLENE GLYCOL 17 GM PKG PO SCH (08:40)
[2017-01-16] MEDS: MULTIVITAMIN TAB PO SCH (08:40)
[2017-01-16] MEDS: ceFAZolin 2 GM PREMIX 50 ML IV SCH ×3 (08:40→23:11)
[2017-01-16] MEDS: FAMOTIDINE 20 MG TAB PO SCH ×2 (08:40→19:35)
[2017-01-16] MEDS: LACTULOSE SYRUP 20 GM/30 ML CUP PO SCH (08:40)
[2017-01-16] MEDS: FOLIC ACID 1 MG TAB PO SCH (08:41)
[2017-01-16] MEDS: TERAZOSIN HCL 5 MG CAP PO SCH (08:41)
[2017-01-16] MEDS: DOCUSATE SODIUM 50 MG/SENNA 8.6 MG TAB PO SCH ×2 (08:41→19:35)
[2017-01-16] MEDS: SODIUM CHLORIDE 0.9% FLUSH 10 ML FLUSH IV FLUSH SCH ×2 (09:00→19:35)
[2017-01-16] MEDS: REMOVE OLD PATCH T-DERMAL SCH (09:06)
[2017-01-16] MEDS: REMOVE OLD DURAGESIC (FENTANYL) PATCH T-DERMAL SCH (12:00)
[2017-01-16] MEDS: fentaNYL 25 MCG/HR PATCH T-DERMAL SCH (12:00)
[2017-01-16 12:22] VITALS: BP 116/70; PULSE 84; RESP 18; TEMP 96.4; O2SAT 95
[2017-01-16 14:10] VITALS: BP 122/66; PULSE 80; RESP 16; TEMP 97; O2SAT 96
--- NOTE | 2017-01-16 14:50 | HHI.PR ---
Subjective Subjective Notes No complaints Objective Vitals/I&O Vital Signs Date Time Temp Pulse Resp B/P Pulse Ox O2 Delivery O2 Flow Rate FiO2 01/16/17 12:22 96.4 84 18 116/70 95 Radiology Last Impressions Chest X-Ray 01/05/17 0600 Signed Impressions: Service Date/Time: Thursday, January 05, 2017 06:48 - CONCLUSION: 1. Right chest tube remains present and no pneumothorax is visualized. 2. There is atelectasis versus consolidation in the left lower lobe. David Olmos MD Pelvis X-Ray 01/04/17 0000 Signed Impressions: Service Date/Time: December 09:20 - CONCLUSION: Satisfactory fracture fragment alignment following ORIF of a comminuted left acetabular fracture. Hosea Rodney MD Multiplanar Reconstruction 01/03/17 0000 Signed Impressions: Service Date/Time: Monday, January 02, 2017 21:26 - CONCLUSION: 3-D reconstructions of left pelvic fracture. Cristian Burr MD Chest Tube Insertion 01/03/17 0000 Signed Impressions: Service Date/Time: Tuesday, January 03, 2017 13:45 - CONCLUSION: Uncomplicated chest tube placement as above. David Aguilar MD Thoracic Spine CT 01/02/172114 Signed Impressions: Service Date/Time: Monday, January 02, 2017 21:26 - CONCLUSION: 1. Fracture of the right posterior first rib. 2. The thoracic vertebra are intact. Basilio Nicole MD Lumbar Spine CT 01/02/172114 Signed Impressions: Service Date/Time: Monday, January 02, 2017 21:26 - CONCLUSION: 1. No evidence of fracture. 2. Grade 1 anterior spondylolisthesis of L5 on S1 of approximately 9 mm with apparent bilateral pars defects. There are mild degenerative disc changes at this level with disc bulge and narrowing of the neural foramina bilaterally. Basilio Nicole MD Head CT 01/02/172110 Signed Impressions: Service Date/Time: Monday, January 02, 2017 21:21 - CONCLUSION: 1. Suboptimal study secondary to streak and mild motion artifact. 2. No acute hemorrhage or mass effect. Basilio Nicole MD Chest CT 01/02/172110 Signed Impressions: Service Date/Time: Monday, January 02, 2017 21:26 - CONCLUSION: 1. Multiple right-sided rib fractures one of which is mildly displaced with small amount of subcutaneous air and no visualized pneumothorax. 2. Small to moderate size hiatal hernia. 3. Atelectasis in the dependent portions of the lung bases. Basilio Nicole MD Cervical Spine CT 01/02/172110 Signed Impressions: Service Date/Time: Monday, January 02, 2017 21:21 - CONCLUSION: Fracture of the right anterior first rib. The cervical spine is intact. Basilio Nicole MD Abdomen/Pelvis CT 01/02/172110 Signed Impressions: Service Date/Time: Monday, January 02, 2017 21:26 - CONCLUSION: 1. No definite evidence of visceral injury. 2. Comminuted fracture deformity of the left acetabulum. 3. Are currently enlarged bladder with trabeculation and multiple diverticuli. 4. Moderate bilateral hydronephrosis. 5. Hiatal hernia. Basilio Nicole MD Knee X-Ray 01/02/17 0000 Signed Impressions: Service Date/Time: Monday, January 02, 2017 21:05 - CONCLUSION: Anterior soft tissue swelling and irregularity with no definite acute fracture or malalignment on this 2 view study. Basilio Nicole MD Narrative Exam GENERAL: 61-year-old well-nourished well-developed male lying in bed. SKIN: Warm and dry. HEAD: Normocephalic. ENT: No nasal bleeding or discharge. Mucous membranes pink and moist. NECK: Trachea midline. No JVD. CARDIOVASCULAR: Regular rate and rhythm. RESPIRATORY: No accessory muscle use. Lungs are clear and diminished to auscultation bilaterally. No distress or dyspnea. GASTROINTESTINAL: Abdomen soft, non-tender, nondistended. + BS. MUSCULOSKELETAL: Extremities without cyanosis, or edema. MAEW. LEFT hip dressing C/D/I. NEUROLOGICAL: Alert and oriented. Normal speech and pattern. A/P Problem List: (1) Alcohol intoxication (2) Trauma (3) Multiple fractures of ribs (4) Acetabulum fracture, left Assessment and Plan INJURIES: RIGHT rib fxs (multiple) RIGHT PTX with CT placement LEFT acetabulum fx LEFT knee lac Aspiration Procedures: 01/03: RIGHT chest tube placed by IR 01/04: ORIF LEFT acetabulum 01/05: Chest tube removed by IR. Diet: Regular diet, tolerating. Pulmonary: IS and acapella. Encouraged patient use. Pain Management: [place] 1-2 tabs, Robaxin, Lidoderm patch, Fentanyl patch. Pain controlled. Discontinued IV Morphine. Activity: OOB. PT and OT evaluating. (TTWB LLE). PT/OT 7 days a week. Ambulating with stand by assist and transferring o wheelchair. GI prophylaxis: Pepcid Bowel regimen: Amparo-Colace. Lactulose. MiraLAX daily. LBM: 01/13 DVT prophylaxis: SCDs, Lovenox 30 BID Orthopedics help discharge due to increased drainage of left hip and disposition to homeless [facility]. Requesting patient go to [facility] for continued therapy. Case management consulted to assist with discharge planning. Patient has no payer source. Plan of care discussed with patient at bedside. The exam, history, and the medical decision-making described in the above note were completed with the assistance of the mid-level provider. I reviewed and agree with the findings presented. I attest that I had a [id number] encounter with the patient on the same day, and personally performed and documented my assessment and findings in the medical record. Problem Qualifiers (1) Multiple fractures of ribs: Qualified Code: S22.41XA - Closed fracture of multiple ribs of right side, initial encounter (2) Acetabulum fracture, left: Rosario Nuñez Jan 16, 2017 14:50 Zackary Vazquez MD Jan 17, 2017 07:38
[2017-01-16] MEDS: ENOXAPARIN SODIUM 30 MG/0.3 ML SYRINGE SQ SCH (16:28)
[2017-01-16] MEDS: REMOVE OLD LIDODERM PATCH T-DERMAL SCH (19:35)
[2017-01-16 20:22] VITALS: BP 126/79; PULSE 94; RESP 19; TEMP 96.9; O2SAT 95
[2017-01-17 00:29] VITALS: BP 140/73; PULSE 90; RESP 19; TEMP 97.2; O2SAT 95
[2017-01-17] MEDS: ACETAMINOPHEN/HYDROcodone 325 MG/10 MG TAB PO PRN ×3 (05:50→22:14)
[2017-01-17] MEDS: METHOCARBAMOL 500 MG TAB PO SCH ×3 (05:50→22:08)
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
[2017-01-17 08:00] VITALS: BP 134/84; PULSE 87; RESP 18; TEMP 97.8; O2SAT 94
[2017-01-17] MEDS: LIDOCAINE HCL 5% PATCH T-DERMAL SCH (08:05)
[2017-01-17] MEDS: REMOVE OLD PATCH T-DERMAL SCH (08:05)
[2017-01-17] MEDS: TERAZOSIN HCL 5 MG CAP PO SCH (09:29)
[2017-01-17] MEDS: INDOMETHACIN 75 MG CONTROLLED RELEASE CAP PO SCH (09:29)
[2017-01-17] MEDS: MULTIVITAMIN TAB PO SCH (09:30)
[2017-01-17] MEDS: FAMOTIDINE 20 MG TAB PO SCH ×2 (09:30→22:08)
[2017-01-17] MEDS: ceFAZolin 2 GM PREMIX 50 ML IV SCH ×2 (09:30→16:28)
[2017-01-17] MEDS: POLYETHYLENE GLYCOL 17 GM PKG PO SCH (09:30)
[2017-01-17] MEDS: LACTULOSE SYRUP 20 GM/30 ML CUP PO SCH (09:30)
[2017-01-17] MEDS: SODIUM CHLORIDE 0.9% FLUSH 10 ML FLUSH IV FLUSH SCH ×2 (09:30→22:08)
[2017-01-17] MEDS: FOLIC ACID 1 MG TAB PO SCH (09:30)
[2017-01-17] MEDS: DOCUSATE SODIUM 50 MG/SENNA 8.6 MG TAB PO SCH ×2 (09:30→22:08)
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
[2017-01-17 12:00] VITALS: BP 114/72; PULSE 81; RESP 18; TEMP 96.5; O2SAT 95
--- NOTE | 2017-01-17 14:05 | HHI.PR ---
Subjective Subjective Notes Pain controlled Patient requesting outpatient psychiatric information Objective Vitals/I&O Vital Signs Date Time Temp Pulse Resp B/P Pulse Ox O2 Delivery O2 Flow Rate FiO2 01/17/17 12:00 96.5 81 18 114/72 95 Radiology Last Impressions Chest X-Ray 01/05/17 0600 Signed Impressions: Service Date/Time: Thursday, January 05, 2017 06:48 - CONCLUSION: 1. Right chest tube remains present and no pneumothorax is visualized. 2. There is atelectasis versus consolidation in the left lower lobe. David Olmos MD Pelvis X-Ray 01/04/17 0000 Signed Impressions: Service Date/Time: December 09:20 - CONCLUSION: Satisfactory fracture fragment alignment following ORIF of a comminuted left acetabular fracture. oHsea Rodney MD Multiplanar Reconstruction 01/03/17 0000 Signed Impressions: Service Date/Time: Monday, January 02, 2017 21:26 - CONCLUSION: 3-D reconstructions of left pelvic fracture. Cristian Burr MD Chest Tube Insertion 01/03/17 0000 Signed Impressions: Service Date/Time: Tuesday, January 03, 2017 13:45 - CONCLUSION: Uncomplicated chest tube placement as above. David Aguilar MD Thoracic Spine CT 01/02/172114 Signed Impressions: Service Date/Time: Monday, January 02, 2017 21:26 - CONCLUSION: 1. Fracture of the right posterior first rib. 2. The thoracic vertebra are intact. Basilio Nicole MD Lumbar Spine CT 01/02/172114 Signed Impressions: Service Date/Time: Monday, January 02, 2017 21:26 - CONCLUSION: 1. No evidence of fracture. 2. Grade 1 anterior spondylolisthesis of L5 on S1 of approximately 9 mm with apparent bilateral pars defects. There are mild degenerative disc changes at this level with disc bulge and narrowing of the neural foramina bilaterally. Basilio Nicole MD Head CT 01/02/172110 Signed Impressions: Service Date/Time: Monday, January 02, 2017 21:21 - CONCLUSION: 1. Suboptimal study secondary to streak and mild motion artifact. 2. No acute hemorrhage or mass effect. Basilio Nicole MD Chest CT 01/02/172110 Signed Impressions: Service Date/Time: Monday, January 02, 2017 21:26 - CONCLUSION: 1. Multiple right-sided rib fractures one of which is mildly displaced with small amount of subcutaneous air and no visualized pneumothorax. 2. Small to moderate size hiatal hernia. 3. Atelectasis in the dependent portions of the lung bases. Basilio Nicole MD Cervical Spine CT 01/02/172110 Signed Impressions: Service Date/Time: Monday, January 02, 2017 21:21 - CONCLUSION: Fracture of the right anterior first rib. The cervical spine is intact. Basilio Nicole MD Abdomen/Pelvis CT 01/02/172110 Signed Impressions: Service Date/Time: Monday, January 02, 2017 21:26 - CONCLUSION: 1. No definite evidence of visceral injury. 2. Comminuted fracture deformity of the left acetabulum. 3. Are currently enlarged bladder with trabeculation and multiple diverticuli. 4. Moderate bilateral hydronephrosis. 5. Hiatal hernia. Basilio Nicole MD Knee X-Ray 01/02/17 0000 Signed Impressions: Service Date/Time: Monday, January 02, 2017 21:05 - CONCLUSION: Anterior soft tissue swelling and irregularity with no definite acute fracture or malalignment on this 2 view study. Basilio Nicole MD Narrative Exam GENERAL: 61-year-old well-nourished well-developed male lying in bed. SKIN: Warm and dry. HEAD: Normocephalic. ENT: No nasal bleeding or discharge. Mucous membranes pink and moist. NECK: Trachea midline. No JVD. CARDIOVASCULAR: Regular rate and rhythm. RESPIRATORY: No accessory muscle use. Lungs are clear and diminished to auscultation bilaterally. No distress or dyspnea. GASTROINTESTINAL: Abdomen soft, non-tender, nondistended. + BS. MUSCULOSKELETAL: Extremities without cyanosis, or edema. MAEW. LEFT hip dressing C/D/I. NEUROLOGICAL: Alert and oriented. Normal speech and pattern. A/P Problem List: (1) Alcohol intoxication (2) Trauma (3) Multiple fractures of ribs (4) Acetabulum fracture, left Assessment and Plan INJURIES: RIGHT rib fxs (multiple) RIGHT PTX with CT placement LEFT acetabulum fx LEFT knee lac Aspiration Procedures: 01/03: RIGHT chest tube placed by IR 01/04: ORIF LEFT acetabulum 01/05: Chest tube removed by IR. Diet: Regular diet, tolerating. Pulmonary: IS and acapella. Encouraged patient use. Pain Management: [place] 1-2 tabs, Robaxin, Lidoderm patch, Fentanyl patch. Pain controlled. Activity: OOB. PT and OT evaluating. (TTWB LLE). PT/OT 7 days a week. Ambulating with stand by assist and transferring o wheelchair. GI prophylaxis: Pepcid Bowel regimen: Amparo-Colace. Lactulose. MiraLAX daily. LBM: 01/16 DVT prophylaxis: SCDs, Lovenox 30 BID Orthopedics help discharge due to increased drainage of left hip and disposition to homeless senior living. Requesting patient go to [facility] for continued therapy. Case management consulted to assist with discharge planning. Patient has no payer source. Plan of care discussed with patient at bedside. Attending Statement patient seen at bedside pt request for psy re-eval bed pending for [place] Attestation The exam, history, and the medical decision-making described in the above note were completed with the assistance of the mid-level provider. I reviewed and agree with the findings presented. I attest that I had a [id number] encounter with the patient on the same day, and personally performed and documented my assessment and findings in the medical record. Problem Qualifiers (1) Multiple fractures of ribs: Qualified Code: S22.41XA - Closed fracture of multiple ribs of right side, initial encounter (2) Acetabulum fracture, left: Rosario Nuñez Jan 17, 2017 14:05 Bipin Corbin MD February 01, 2017 21:35
[2017-01-17 15:50] VITALS: BP 111/77; PULSE 86; RESP 18; TEMP 98.1; O2SAT 95
[2017-01-17] MEDS: ENOXAPARIN SODIUM 30 MG/0.3 ML SYRINGE SQ SCH (16:28)
[2017-01-17 20:31] VITALS: BP 122/73; PULSE 78; RESP 19; TEMP 97.2; O2SAT 96
[2017-01-17] MEDS: REMOVE OLD LIDODERM PATCH T-DERMAL SCH (21:00)
[2017-01-18] MEDS: ceFAZolin 2 GM PREMIX 50 ML IV SCH ×3 (00:02→16:00)
[2017-01-18 00:28] VITALS: BP 129/74; PULSE 89; RESP 20; TEMP 97.5; O2SAT 95
[2017-01-18] MEDS: METHOCARBAMOL 500 MG TAB PO SCH ×3 (05:28→22:28)
[2017-01-18 08:00] VITALS: BP 124/72; PULSE 84; RESP 18; TEMP 97.6; O2SAT 97
--- NOTE | 2017-01-18 08:45 | PD.ORT.PN ---
Subjective Subjective Remarks Resting comfortably with no new complaints. States that he is homeless and does not have a home or place to go to Objective Vitals Vital Signs Date Time Temp Pulse Resp B/P Pulse Ox O2 Delivery O2 Flow Rate FiO2 01/18/17 00:28 97.5 89 20 129/74 95 01/17/17 20:31 97.2 78 19 122/73 96 01/17/17 18:44 Room Air 01/17/17 15:50 98.1 86 18 111/77 95 01/17/17 12:00 96.5 81 18 114/72 95 I/O 01/17/17 01/17/17 01/17/17 01/18/17 01/18/17 01/18/17 07:00 15:00 23:00 07:00 15:00 23:00 Intake Total 360 ml 1220 ml 480 ml 240 ml Output Total 350 ml Balance 360 ml 1220 ml 480 ml -110 ml Intake Oral 360 ml 1220 ml 480 ml 240 ml Output Urine Total 350 ml # Voids 1 3 2 # Bowel Movements 0 1 1 0 Imaging Last 24 hours Impressions Multiplanar Reconstruction 01/03/17 0000 Signed Impressions: Service Date/Time: Monday, January 02, 2017 21:26 - CONCLUSION: 3-D reconstructions of left pelvic fracture. Cristian Burr MD Chest X-Ray 01/03/17 Signed Impressions: Service Date/Time: Tuesday, January 03, 2017 05:26 - CONCLUSION: 1. Interval development of prominent right-sided pneumothorax. Right-sided chest tube recommended. 2. Bibasilar atelectasis greater in the left lower lobe. Cristian Burr MD Thoracic Spine CT 01/02/172114 Signed Impressions: Service Date/Time: Monday, January 02, 2017 21:26 - CONCLUSION: 1. Fracture of the right posterior first rib. 2. The thoracic vertebra are intact. Basilio Nicole MD Lumbar Spine CT 01/02/172114 Signed Impressions: Service Date/Time: Monday, January 02, 2017 21:26 - CONCLUSION: 1. No evidence of fracture. 2. Grade 1 anterior spondylolisthesis of L5 on S1 of approximately 9 mm with apparent bilateral pars defects. There are mild degenerative disc changes at this level with disc bulge and narrowing of the neural foramina bilaterally. Basilio Nicole MD Pelvis X-Ray 01/02/172110 Signed Impressions: Service Date/Time: Monday, January 02, 2017 21:05 - CONCLUSION: Racture to the superior left acetabulum. Basilio Nicole MD Head CT 01/02/172110 Signed Impressions: Service Date/Time: Monday, January 02, 2017 21:21 - CONCLUSION: 1. Suboptimal study secondary to streak and mild motion artifact. 2. No acute hemorrhage or mass effect. Basilio Nicole MD Chest X-Ray 01/02/172110 Signed Impressions: Service Date/Time: Monday, January 02, 2017 21:05 - CONCLUSION: Multiple right-sided rib fractures with no visualized pneumothorax on this supine study. Basilio Nicole MD Chest CT 01/02/172110 Signed Impressions: Service Date/Time: Monday, January 02, 2017 21:26 - CONCLUSION: 1. Multiple right-sided rib fractures one of which is mildly displaced with small amount of subcutaneous air and no visualized pneumothorax. 2. Small to moderate size hiatal hernia. 3. Atelectasis in the dependent portions of the lung bases. Basilio Nicole MD Cervical Spine CT 01/02/172110 Signed Impressions: Service Date/Time: Monday, January 02, 2017 21:21 - CONCLUSION: Fracture of the right anterior first rib. The cervical spine is intact. Basilio Nicole MD Abdomen/Pelvis CT 01/02/172110 Signed Impressions: Service Date/Time: Monday, January 02, 2017 21:26 - CONCLUSION: 1. No definite evidence of visceral injury. 2. Comminuted fracture deformity of the left acetabulum. 3. Are currently enlarged bladder with trabeculation and multiple diverticuli. 4. Moderate bilateral hydronephrosis. 5. Hiatal hernia. Basilio Nicole MD Procedures Left Acetabulum Fx s/p ORIF Objective Remarks LLE: dressings clean and dry. intact. incision visualized. clean and dry. no drainage. noted erythema from adhesive irritation surrounding incision Assessment & Plan Problem List: (1) Acetabulum fracture, left (2) Multiple fractures of ribs (3) Trauma (4) Alcohol intoxication Assessment and Plan 1) Left Acetabulum Fx s/p ORIF - POD 14 -TTWB left leg -daily dressing changes, dry dressing over left hip and Xeroform over knee -knee brace while in bed Lovenox -work with PT, toe touch w/b -plan for DC to rehab when stable and bed available - no finances at this time -would benefit from continued stay in hospital at this time as still having drainage from incision. will order xrays this week. -change dressings to paper tape due to reaction to adhesive -[facility] has agreed to accept patient in [place] when bed available Basilio Badillo Jr. Jan 18, 2017 08:45
[2017-01-18] MEDS: LIDOCAINE HCL 5% PATCH T-DERMAL SCH (09:00)
[2017-01-18] MEDS: REMOVE OLD PATCH T-DERMAL SCH (09:00)
[2017-01-18] MEDS: TERAZOSIN HCL 5 MG CAP PO SCH (09:04)
[2017-01-18] MEDS: FAMOTIDINE 20 MG TAB PO SCH ×2 (09:04→22:28)
[2017-01-18] MEDS: MULTIVITAMIN TAB PO SCH (09:05)
[2017-01-18] MEDS: LACTULOSE SYRUP 20 GM/30 ML CUP PO SCH (09:05)
[2017-01-18] MEDS: POLYETHYLENE GLYCOL 17 GM PKG PO SCH (09:05)
[2017-01-18] MEDS: FOLIC ACID 1 MG TAB PO SCH (09:05)
[2017-01-18] MEDS: INDOMETHACIN 75 MG CONTROLLED RELEASE CAP PO SCH (09:05)
[2017-01-18] MEDS: DOCUSATE SODIUM 50 MG/SENNA 8.6 MG TAB PO SCH ×2 (09:05→22:28)
[2017-01-18] MEDS: ACETAMINOPHEN/HYDROcodone 325 MG/10 MG TAB PO PRN ×2 (09:07→22:30)
[2017-01-18] MEDS: SODIUM CHLORIDE 0.9% FLUSH 10 ML FLUSH IV FLUSH SCH ×2 (09:12→22:28)
[2017-01-18 12:00] VITALS: BP 102/65; PULSE 86; RESP 18; TEMP 98; O2SAT 96
--- NOTE | 2017-01-18 14:03 | HHI.PR ---
Subjective Subjective Notes No complaints Awaiting bed at [place] Objective Vitals/I&O Vital Signs Date Time Temp Pulse Resp B/P Pulse Ox O2 Delivery O2 Flow Rate FiO2 01/18/17 10:07 18 01/18/17 08:00 97.6 84 124/72 97 01/17/17 18:44 Room Air Radiology Last Impressions Chest X-Ray 01/05/17 0600 Signed Impressions: Service Date/Time: Thursday, January 05, 2017 06:48 - CONCLUSION: 1. Right chest tube remains present and no pneumothorax is visualized. 2. There is atelectasis versus consolidation in the left lower lobe. David Olmos MD Pelvis X-Ray 01/04/17 0000 Signed Impressions: Service Date/Time: December 09:20 - CONCLUSION: Satisfactory fracture fragment alignment following ORIF of a comminuted left acetabular fracture. Hosea Rodney MD Multiplanar Reconstruction 01/03/17 0000 Signed Impressions: Service Date/Time: Monday, January 02, 2017 21:26 - CONCLUSION: 3-D reconstructions of left pelvic fracture. Cristian Burr MD Chest Tube Insertion 01/03/17 0000 Signed Impressions: Service Date/Time: Tuesday, January 03, 2017 13:45 - CONCLUSION: Uncomplicated chest tube placement as above. David Aguilar MD Thoracic Spine CT 01/02/172114 Signed Impressions: Service Date/Time: Monday, January 02, 2017 21:26 - CONCLUSION: 1. Fracture of the right posterior first rib. 2. The thoracic vertebra are intact. Basilio Nicole MD Lumbar Spine CT 01/02/172114 Signed Impressions: Service Date/Time: Monday, January 02, 2017 21:26 - CONCLUSION: 1. No evidence of fracture. 2. Grade 1 anterior spondylolisthesis of L5 on S1 of approximately 9 mm with apparent bilateral pars defects. There are mild degenerative disc changes at this level with disc bulge and narrowing of the neural foramina bilaterally. Basilio Nicole MD Head CT 01/02/172110 Signed Impressions: Service Date/Time: Monday, January 02, 2017 21:21 - CONCLUSION: 1. Suboptimal study secondary to streak and mild motion artifact. 2. No acute hemorrhage or mass effect. Basilio Nicole MD Chest CT 01/02/172110 Signed Impressions: Service Date/Time: Monday, January 02, 2017 21:26 - CONCLUSION: 1. Multiple right-sided rib fractures one of which is mildly displaced with small amount of subcutaneous air and no visualized pneumothorax. 2. Small to moderate size hiatal hernia. 3. Atelectasis in the dependent portions of the lung bases. Basilio Nicole MD Cervical Spine CT 01/02/172110 Signed Impressions: Service Date/Time: Monday, January 02, 2017 21:21 - CONCLUSION: Fracture of the right anterior first rib. The cervical spine is intact. Basilio Nicole MD Abdomen/Pelvis CT 01/02/172110 Signed Impressions: Service Date/Time: Monday, January 02, 2017 21:26 - CONCLUSION: 1. No definite evidence of visceral injury. 2. Comminuted fracture deformity of the left acetabulum. 3. Are currently enlarged bladder with trabeculation and multiple diverticuli. 4. Moderate bilateral hydronephrosis. 5. Hiatal hernia. Basilio Nicole MD Knee X-Ray 01/02/17 0000 Signed Impressions: Service Date/Time: Monday, January 02, 2017 21:05 - CONCLUSION: Anterior soft tissue swelling and irregularity with no definite acute fracture or malalignment on this 2 view study. Basilio Nicole MD Narrative Exam GENERAL: 61-year-old well-nourished well-developed male lying in bed. SKIN: Warm and dry. HEAD: Normocephalic. ENT: No nasal bleeding or discharge. Mucous membranes pink and moist. NECK: Trachea midline. No JVD. CARDIOVASCULAR: Regular rate and rhythm. RESPIRATORY: No accessory muscle use. Lungs are clear and diminished to auscultation bilaterally. No distress or dyspnea. GASTROINTESTINAL: Abdomen soft, non-tender, nondistended. + BS. MUSCULOSKELETAL: Extremities without cyanosis, or edema. MAEW. LEFT hip dressing C/D/I. NEUROLOGICAL: Alert and oriented. Normal speech and pattern. A/P Problem List: (1) Alcohol intoxication (2) Trauma (3) Multiple fractures of ribs (4) Acetabulum fracture, left Assessment and Plan INJURIES: RIGHT rib fxs (multiple) RIGHT PTX with CT placement LEFT acetabulum fx LEFT knee lac Aspiration Procedures: 01/03: RIGHT chest tube placed by IR 01/04: ORIF LEFT acetabulum 01/05: Chest tube removed by IR. Diet: Regular diet, tolerating. Pulmonary: IS and acapella. Encouraged patient use. Pain Management: [place] 1-2 tabs, Robaxin, Lidoderm patch, Fentanyl patch. Pain controlled. Activity: OOB. PT and OT evaluating. (TTWB LLE). PT/OT 7 days a week. Ambulating with stand by assist and transferring o wheelchair. GI prophylaxis: Pepcid Bowel regimen: Amparo-Colace. Lactulose. MiraLAX daily. LBM: 01/18 DVT prophylaxis: SCDs, Lovenox 30 BID Orthopedics help discharge due to increased drainage of left hip and disposition to homeless residential. Requesting patient go to [place] for continued therapy. Case management consulted to assist with discharge planning. Patient has no payer source. Awaiting bed at [place] Plan of care discussed with patient and at bedside. Attending Statement patient seen at bedside sacul pending bed placement Attestation The exam, history, and the medical decision-making described in the above note were completed with the assistance of the mid-level provider. I reviewed and agree with the findings presented. I attest that I had a [id number] encounter with the patient on the same day, and personally performed and documented my assessment and findings in the medical record. Problem Qualifiers (1) Multiple fractures of ribs: Qualified Code: S22.41XA - Closed fracture of multiple ribs of right side, initial encounter (2) Acetabulum fracture, left: Rosario Nuñez Jan 18, 2017 14:03 Bipin Corbin MD January 30, 2017 13:41
[2017-01-18 16:00] VITALS: BP 121/71; PULSE 83; RESP 18; TEMP 97.6; O2SAT 98
[2017-01-18] MEDS: ENOXAPARIN SODIUM 30 MG/0.3 ML SYRINGE SQ SCH (16:00)
[2017-01-18 20:00] VITALS: BP 123/81; PULSE 90; RESP 18; TEMP 97.5; O2SAT 98
[2017-01-18] MEDS: REMOVE OLD LIDODERM PATCH T-DERMAL SCH (21:00)
[2017-01-19] VITALS: BP 109/73; PULSE 80; RESP 18; TEMP 98.8; O2SAT 96
[2017-01-19] MEDS: ceFAZolin 2 GM PREMIX 50 ML IV SCH ×4 (00:40→23:49)
[2017-01-19] MEDS: METHOCARBAMOL 500 MG TAB PO SCH ×3 (05:34→20:26)
--- NOTE | 2017-01-19 06:56 | PD.ORT.PN ---
Subjective Subjective Remarks Resting comfortably with no new complaints. States that he is homeless and does not have a home or place to go to Objective Vitals Vital Signs Date Time Temp Pulse Resp B/P Pulse Ox O2 Delivery O2 Flow Rate FiO2 01/19/17 00:00 98.8 80 18 109/73 96 01/18/17 20:00 97.5 90 18 123/81 98 01/18/17 18:43 Room Air 01/18/17 16:00 97.6 83 18 121/71 98 01/18/17 12:00 98.0 86 18 102/65 96 01/18/17 10:07 18 01/18/17 08:00 97.6 84 18 124/72 97 I/O 01/18/17 01/18/17 01/18/17 01/19/17 01/19/17 01/19/17 07:00 15:00 23:00 07:00 15:00 23:00 Intake Total 240 ml 600 ml 480 ml Output Total 350 ml Balance -110 ml 600 ml 480 ml Intake Oral 240 ml 600 ml 480 ml Output Urine Total 350 ml # Voids 3 0 # Bowel Movements 0 0 0 Imaging Last 24 hours Impressions Multiplanar Reconstruction 01/03/17 0000 Signed Impressions: Service Date/Time: Monday, January 02, 2017 21:26 - CONCLUSION: 3-D reconstructions of left pelvic fracture. Cristian Burr MD Chest X-Ray 01/03/17 0000 Signed Impressions: Service Date/Time: Tuesday, January 03, 2017 05:26 - CONCLUSION: 1. Interval development of prominent right-sided pneumothorax. Right-sided chest tube recommended. 2. Bibasilar atelectasis greater in the left lower lobe. Cristian Burr MD Thoracic Spine CT 01/02/172114 Signed Impressions: Service Date/Time: Monday, January 02, 2017 21:26 - CONCLUSION: 1. Fracture of the right posterior first rib. 2. The thoracic vertebra are intact. Basilio Nicole MD Lumbar Spine CT 01/02/172114 Signed Impressions: Service Date/Time: Monday, January 02, 2017 21:26 - CONCLUSION: 1. No evidence of fracture. 2. Grade 1 anterior spondylolisthesis of L5 on S1 of approximately 9 mm with apparent bilateral pars defects. There are mild degenerative disc changes at this level with disc bulge and narrowing of the neural foramina bilaterally. Basilio Nicole MD Pelvis X-Ray 01/02/172110 Signed Impressions: Service Date/Time: Monday, January 02, 2017 21:05 - CONCLUSION: Racture to the superior left acetabulum. Basilio Nicole MD Head CT 01/02/172110 Signed Impressions: Service Date/Time: Monday, January 02, 2017 21:21 - CONCLUSION: 1. Suboptimal study secondary to streak and mild motion artifact. 2. No acute hemorrhage or mass effect. Basilio Nicloe MD Chest X-Ray 01/02/172110 Signed Impressions: Service Date/Time: Monday, January 02, 2017 21:05 - CONCLUSION: Multiple right-sided rib fractures with no visualized pneumothorax on this supine study. Basilio Nicole MD Chest CT 01/02/172110 Signed Impressions: Service Date/Time: Monday, January 02, 2017 21:26 - CONCLUSION: 1. Multiple right-sided rib fractures one of which is mildly displaced with small amount of subcutaneous air and no visualized pneumothorax. 2. Small to moderate size hiatal hernia. 3. Atelectasis in the dependent portions of the lung bases. Basilio Nicole MD Cervical Spine CT 01/02/172110 Signed Impressions: Service Date/Time: Monday, January 02, 2017 21:21 - CONCLUSION: Fracture of the right anterior first rib. The cervical spine is intact. Basilio Nicole MD Abdomen/Pelvis CT 01/02/172110 Signed Impressions: Service Date/Time: Monday, January 02, 2017 21:26 - CONCLUSION: 1. No definite evidence of visceral injury. 2. Comminuted fracture deformity of the left acetabulum. 3. Are currently enlarged bladder with trabeculation and multiple diverticuli. 4. Moderate bilateral hydronephrosis. 5. Hiatal hernia. Basilio Nicole MD Procedures Left Acetabulum Fx s/p ORIF Objective Remarks LLE: dressings clean and dry. intact. incision visualized. clean and dry. no drainage. Assessment & Plan Problem List: (1) Acetabulum fracture, left (2) Multiple fractures of ribs (3) Trauma (4) Alcohol intoxication Assessment and Plan 1) Left Acetabulum Fx s/p ORIF - POD 15 -TTWB left leg -daily dressing changes, dry dressing over left hip and Xeroform over knee -knee brace while in bed Lovenox -work with PT, toe touch w/b -plan for DC to rehab when stable and bed available - no finances at this time -would benefit from continued stay in hospital at this time as still having drainage from incision. will order xrays this week. -change dressings to paper tape due to reaction to adhesive We'll plan on discontinuing [place]ila next week at POD 20 -[facility] has agreed to accept patient in [place] when bed available Basilio Badillo Jr. Jan 19, 2017 06:56
[2017-01-19] MEDS: LACTULOSE SYRUP 20 GM/30 ML CUP PO SCH (07:51)
[2017-01-19] MEDS: POLYETHYLENE GLYCOL 17 GM PKG PO SCH (07:51)
[2017-01-19] MEDS: TERAZOSIN HCL 5 MG CAP PO SCH (07:52)
[2017-01-19] MEDS: FAMOTIDINE 20 MG TAB PO SCH ×2 (07:52→20:27)
[2017-01-19] MEDS: ACETAMINOPHEN/HYDROcodone 325 MG/10 MG TAB PO PRN ×2 (07:52→20:27)
[2017-01-19] MEDS: INDOMETHACIN 75 MG CONTROLLED RELEASE CAP PO SCH (07:52)
[2017-01-19] MEDS: FOLIC ACID 1 MG TAB PO SCH (07:52)
[2017-01-19] MEDS: MULTIVITAMIN TAB PO SCH (07:52)
[2017-01-19] MEDS: DOCUSATE SODIUM 50 MG/SENNA 8.6 MG TAB PO SCH ×2 (07:53→20:26)
[2017-01-19] MEDS: SODIUM CHLORIDE 0.9% FLUSH 10 ML FLUSH IV FLUSH SCH ×2 (07:57→20:27)
[2017-01-19 08:00] VITALS: BP 130/78; PULSE 78; RESP 18; TEMP 97.8; O2SAT 98
[2017-01-19] MEDS: LIDOCAINE HCL 5% PATCH T-DERMAL SCH (08:00)
[2017-01-19] MEDS: REMOVE OLD PATCH T-DERMAL SCH (08:00)
[2017-01-19 12:00] VITALS: BP 129/84; PULSE 92; RESP 21; TEMP 96.8; O2SAT 97
[2017-01-19] MEDS: REMOVE OLD DURAGESIC (FENTANYL) PATCH T-DERMAL SCH (12:00)
[2017-01-19] MEDS: fentaNYL 25 MCG/HR PATCH T-DERMAL SCH (12:14)
--- NOTE | 2017-01-19 13:07 | HHI.PR ---
Subjective Subjective Notes Reports he's ambulating halls No complaints Objective Vitals/I&O Vital Signs Date Time Temp Pulse Resp B/P Pulse Ox O2 Delivery O2 Flow Rate FiO2 01/19/17 08:52 18 01/19/17 08:00 97.8 78 130/78 98 01/18/17 18:43 Room Air Radiology Last Impressions Chest X-Ray 01/05/17 0600 Signed Impressions: Service Date/Time: Thursday, January 05, 2017 06:48 - CONCLUSION: 1. Right chest tube remains present and no pneumothorax is visualized. 2. There is atelectasis versus consolidation in the left lower lobe. David Olmos MD Pelvis X-Ray 01/04/17 0000 Signed Impressions: Service Date/Time: December 09:20 - CONCLUSION: Satisfactory fracture fragment alignment following ORIF of a comminuted left acetabular fracture. Hosea Rodney MD Multiplanar Reconstruction 01/03/17 0000 Signed Impressions: Service Date/Time: Monday, January 02, 2017 21:26 - CONCLUSION: 3-D reconstructions of left pelvic fracture. Cristian Burr MD Chest Tube Insertion 01/03/17 0000 Signed Impressions: Service Date/Time: Tuesday, January 03, 2017 13:45 - CONCLUSION: Uncomplicated chest tube placement as above. David Aguilar MD Thoracic Spine CT 01/02/172114 Signed Impressions: Service Date/Time: Monday, January 02, 2017 21:26 - CONCLUSION: 1. Fracture of the right posterior first rib. 2. The thoracic vertebra are intact. Basilio Nicole MD Lumbar Spine CT 01/02/172114 Signed Impressions: Service Date/Time: Monday, January 02, 2017 21:26 - CONCLUSION: 1. No evidence of fracture. 2. Grade 1 anterior spondylolisthesis of L5 on S1 of approximately 9 mm with apparent bilateral pars defects. There are mild degenerative disc changes at this level with disc bulge and narrowing of the neural foramina bilaterally. Basilio Nicole MD Head CT 01/02/172110 Signed Impressions: Service Date/Time: Monday, January 02, 2017 21:21 - CONCLUSION: 1. Suboptimal study secondary to streak and mild motion artifact. 2. No acute hemorrhage or mass effect. Basilio Nicole MD Chest CT 01/02/172110 Signed Impressions: Service Date/Time: Monday, January 02, 2017 21:26 - CONCLUSION: 1. Multiple right-sided rib fractures one of which is mildly displaced with small amount of subcutaneous air and no visualized pneumothorax. 2. Small to moderate size hiatal hernia. 3. Atelectasis in the dependent portions of the lung bases. Basilio Nicole MD Cervical Spine CT 01/02/172110 Signed Impressions: Service Date/Time: Monday, January 02, 2017 21:21 - CONCLUSION: Fracture of the right anterior first rib. The cervical spine is intact. Basilio Nicole MD Abdomen/Pelvis CT 01/02/172110 Signed Impressions: Service Date/Time: Monday, January 02, 2017 21:26 - CONCLUSION: 1. No definite evidence of visceral injury. 2. Comminuted fracture deformity of the left acetabulum. 3. Are currently enlarged bladder with trabeculation and multiple diverticuli. 4. Moderate bilateral hydronephrosis. 5. Hiatal hernia. Basilio Nicole MD Knee X-Ray 01/02/17 0000 Signed Impressions: Service Date/Time: Monday, January 02, 2017 21:05 - CONCLUSION: Anterior soft tissue swelling and irregularity with no definite acute fracture or malalignment on this 2 view study. Basilio Nicole MD Narrative Exam GENERAL: 61-year-old well-nourished well-developed male lying in bed. SKIN: Warm and dry. HEAD: Normocephalic. ENT: No nasal bleeding or discharge. Mucous membranes pink and moist. NECK: Trachea midline. No JVD. CARDIOVASCULAR: Regular rate and rhythm. RESPIRATORY: No accessory muscle use. Lungs are clear and diminished to auscultation bilaterally. No distress or dyspnea. GASTROINTESTINAL: Abdomen soft, non-tender, nondistended. + BS. MUSCULOSKELETAL: Extremities without cyanosis, or edema. MAEW. LEFT hip dressing C/D/I. NEUROLOGICAL: Alert and oriented. Normal speech and pattern. A/P Problem List: (1) Alcohol intoxication (2) Trauma (3) Multiple fractures of ribs (4) Acetabulum fracture, left Assessment and Plan INJURIES: RIGHT rib fxs (multiple) RIGHT PTX with CT placement LEFT acetabulum fx LEFT knee lac Aspiration Procedures: 01/03: RIGHT chest tube placed by IR 01/04: ORIF LEFT acetabulum 01/05: Chest tube removed by IR. Diet: Regular diet, tolerating. Pulmonary: IS and acapella. Encouraged patient use. Pain Management: [place] 1-2 tabs, Robaxin, Lidoderm patch, Fentanyl patch. Pain controlled. Activity: OOB. PT and OT evaluating. (TTWB LLE). PT/OT 7 days a week. Ambulating with stand by assist and transferring o wheelchair. GI prophylaxis: Pepcid Bowel regimen: Amparo-Colace. Lactulose. MiraLAX daily. LBM: 01/18 DVT prophylaxis: SCDs, Lovenox 30 BID Orthopedics help discharge due to increased drainage of left hip and disposition to homeless retirement. Requesting patient go to [place] for continued therapy. Case management consulted to assist with discharge planning. Patient has no payer source. Awaiting bed at [place]. Will consult [facility] to assume care when bed available at [place]. Plan of care discussed with patient and at bedside. Problem Qualifiers (1) Multiple fractures of ribs: Qualified Code: S22.41XA - Closed fracture of multiple ribs of right side, initial encounter (2) Acetabulum fracture, left: Rosario Nuñez Jan 19, 2017 13:07
[2017-01-19] MEDS: ENOXAPARIN SODIUM 30 MG/0.3 ML SYRINGE SQ SCH (15:43)
[2017-01-19 16:00] VITALS: BP 130/79; PULSE 73; RESP 18; TEMP 96.1; O2SAT 98
[2017-01-19 19:00] VITALS: BP 134/76; PULSE 88; RESP 16; TEMP 97.5; O2SAT 97
[2017-01-19] MEDS: REMOVE OLD LIDODERM PATCH T-DERMAL SCH (20:27)
[2017-01-20] VITALS: BP 135/77; PULSE 85; RESP 17; TEMP 98; O2SAT 97
[2017-01-20] MEDS: METHOCARBAMOL 500 MG TAB PO SCH ×3 (06:35→20:52)
[2017-01-20] MEDS: TERAZOSIN HCL 5 MG CAP PO SCH (07:28)
[2017-01-20] MEDS: POLYETHYLENE GLYCOL 17 GM PKG PO SCH (07:28)
[2017-01-20] MEDS: MULTIVITAMIN TAB PO SCH (07:28)
[2017-01-20] MEDS: FOLIC ACID 1 MG TAB PO SCH (07:28)
[2017-01-20] MEDS: DOCUSATE SODIUM 50 MG/SENNA 8.6 MG TAB PO SCH ×2 (07:28→20:52)
[2017-01-20] MEDS: LACTULOSE SYRUP 20 GM/30 ML CUP PO SCH (07:28)
[2017-01-20] MEDS: INDOMETHACIN 75 MG CONTROLLED RELEASE CAP PO SCH (07:28)
[2017-01-20] MEDS: ceFAZolin 2 GM PREMIX 50 ML IV SCH ×2 (07:29→16:56)
[2017-01-20] MEDS: ACETAMINOPHEN/HYDROcodone 325 MG/10 MG TAB PO PRN (07:29)
[2017-01-20] MEDS: FAMOTIDINE 20 MG TAB PO SCH ×2 (07:29→20:53)
[2017-01-20] MEDS: REMOVE OLD PATCH T-DERMAL SCH (07:40)
[2017-01-20] MEDS: LIDOCAINE HCL 5% PATCH T-DERMAL SCH (07:41)
[2017-01-20 07:58] VITALS: BP 139/79; PULSE 83; RESP 16; TEMP 97.7; O2SAT 97
[2017-01-20] MEDS: SODIUM CHLORIDE 0.9% FLUSH 10 ML FLUSH IV FLUSH SCH (11:00)
[2017-01-20 11:01] VITALS: BP 126/81; PULSE 89; RESP 18; TEMP 97.6; O2SAT 96
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
[2017-01-20] MEDS: ENOXAPARIN SODIUM 30 MG/0.3 ML SYRINGE SQ SCH (16:56)
[2017-01-20 20:00] VITALS: BP 133/86; PULSE 85; RESP 16; TEMP 97.8; O2SAT 97
[2017-01-20] MEDS: REMOVE OLD LIDODERM PATCH T-DERMAL SCH (20:53)
[2017-01-21] MEDS: ceFAZolin 2 GM PREMIX 50 ML IV SCH
[2017-01-21] MEDS: ACETAMINOPHEN/HYDROcodone 325 MG/10 MG TAB PO PRN ×3 (00:39→16:36)
[2017-01-21] MEDS: METHOCARBAMOL 500 MG TAB PO SCH ×3 (05:41→22:22)
[2017-01-21 08:00] VITALS: BP 105/63; PULSE 69; RESP 18; TEMP 97.3; O2SAT 99
[2017-01-21] MEDS: REMOVE OLD PATCH T-DERMAL SCH (09:00)
[2017-01-21] MEDS: LIDOCAINE HCL 5% PATCH T-DERMAL SCH (09:00)
[2017-01-21] MEDS: TERAZOSIN HCL 5 MG CAP PO SCH (10:29)
[2017-01-21] MEDS: FAMOTIDINE 20 MG TAB PO SCH ×2 (10:29→20:19)
[2017-01-21] MEDS: INDOMETHACIN 75 MG CONTROLLED RELEASE CAP PO SCH (10:29)
[2017-01-21] MEDS: LACTULOSE SYRUP 20 GM/30 ML CUP PO SCH (10:29)
[2017-01-21] MEDS: FOLIC ACID 1 MG TAB PO SCH (10:29)
[2017-01-21] MEDS: MULTIVITAMIN TAB PO SCH (10:30)
[2017-01-21] MEDS: DOCUSATE SODIUM 50 MG/SENNA 8.6 MG TAB PO SCH ×2 (10:30→20:19)
[2017-01-21] MEDS: POLYETHYLENE GLYCOL 17 GM PKG PO SCH (10:33)
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
[2017-01-21] MEDS: ENOXAPARIN SODIUM 30 MG/0.3 ML SYRINGE SQ SCH (14:38)
[2017-01-21 20:00] VITALS: BP 115/77; PULSE 80; RESP 17; TEMP 96.6; O2SAT 97
[2017-01-21] MEDS: NYSTATIN 100,000 UNIT/GM CREAM 15 GM TOPICAL SCH (20:21)
[2017-01-21] MEDS: REMOVE OLD LIDODERM PATCH T-DERMAL SCH (21:00)
[2017-01-22] MEDS: METHOCARBAMOL 500 MG TAB PO SCH ×3 (05:46→21:15)
[2017-01-22 08:00] VITALS: BP 146/91; PULSE 67; RESP 17; TEMP 97.7; O2SAT 95
[2017-01-22] MEDS: LIDOCAINE HCL 5% PATCH T-DERMAL SCH (09:00)
[2017-01-22] MEDS: REMOVE OLD PATCH T-DERMAL SCH (09:00)
[2017-01-22] MEDS: LACTULOSE SYRUP 20 GM/30 ML CUP PO SCH (09:30)
[2017-01-22] MEDS: POLYETHYLENE GLYCOL 17 GM PKG PO SCH (09:30)
[2017-01-22] MEDS: MULTIVITAMIN TAB PO SCH (09:30)
[2017-01-22] MEDS: FAMOTIDINE 20 MG TAB PO SCH ×2 (09:30→21:15)
[2017-01-22] MEDS: TERAZOSIN HCL 5 MG CAP PO SCH (09:30)
[2017-01-22] MEDS: DOCUSATE SODIUM 50 MG/SENNA 8.6 MG TAB PO SCH ×2 (09:31→21:15)
[2017-01-22] MEDS: INDOMETHACIN 75 MG CONTROLLED RELEASE CAP PO SCH (09:31)
[2017-01-22] MEDS: FOLIC ACID 1 MG TAB PO SCH (09:31)
[2017-01-22] MEDS: ACETAMINOPHEN/HYDROcodone 325 MG/10 MG TAB PO PRN ×2 (09:37→21:19)
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
[2017-01-22] MEDS: NYSTATIN 100,000 UNIT/GM CREAM 15 GM TOPICAL SCH ×2 (14:55→21:17)
[2017-01-22] MEDS: ENOXAPARIN SODIUM 30 MG/0.3 ML SYRINGE SQ SCH (16:00)
[2017-01-22 20:00] VITALS: BP 99/66; PULSE 81; RESP 16; TEMP 97.5; O2SAT 95
[2017-01-22] MEDS: REMOVE OLD LIDODERM PATCH T-DERMAL SCH (21:00)
[2017-01-23] MEDS: METHOCARBAMOL 500 MG TAB PO SCH ×3 (05:55→21:10)
[2017-01-23 08:00] VITALS: BP 134/89; PULSE 77; RESP 16; TEMP 97.7; O2SAT 96
[2017-01-23] MEDS: LACTULOSE SYRUP 20 GM/30 ML CUP PO SCH (08:45)
[2017-01-23] MEDS: DOCUSATE SODIUM 50 MG/SENNA 8.6 MG TAB PO SCH ×2 (08:45→21:08)
[2017-01-23] MEDS: TERAZOSIN HCL 5 MG CAP PO SCH (08:45)
[2017-01-23] MEDS: MULTIVITAMIN TAB PO SCH (08:45)
[2017-01-23] MEDS: FAMOTIDINE 20 MG TAB PO SCH ×2 (08:45→21:07)
[2017-01-23] MEDS: INDOMETHACIN 75 MG CONTROLLED RELEASE CAP PO SCH (08:45)
[2017-01-23] MEDS: FOLIC ACID 1 MG TAB PO SCH (08:45)
[2017-01-23] MEDS: ACETAMINOPHEN/HYDROcodone 325 MG/10 MG TAB PO PRN ×2 (08:45→16:16)
[2017-01-23] MEDS: POLYETHYLENE GLYCOL 17 GM PKG PO SCH (08:46)
[2017-01-23] MEDS: REMOVE OLD PATCH T-DERMAL SCH (08:48)
[2017-01-23] MEDS: LIDOCAINE HCL 5% PATCH T-DERMAL SCH (08:49)
[2017-01-23] MEDS: NYSTATIN 100,000 UNIT/GM CREAM 15 GM TOPICAL SCH ×2 (08:49→21:11)
[2017-01-23] MEDS: ENOXAPARIN SODIUM 30 MG/0.3 ML SYRINGE SQ SCH (16:00)
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
[2017-01-23 20:00] VITALS: BP 108/60; PULSE 80; RESP 20; TEMP 96; O2SAT 100
[2017-01-23] MEDS: REMOVE OLD LIDODERM PATCH T-DERMAL SCH (21:00)
[2017-01-24] MEDS: METHOCARBAMOL 500 MG TAB PO SCH ×3 (06:13→21:58)
[2017-01-24] MEDS: ACETAMINOPHEN/HYDROcodone 325 MG/10 MG TAB PO PRN ×3 (06:14→21:58)
[2017-01-24 08:00] VITALS: BP 133/84; PULSE 78; RESP 20; TEMP 96.7; O2SAT 98
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
[2017-01-24] MEDS: LIDOCAINE HCL 5% PATCH T-DERMAL SCH (09:00)
[2017-01-24] MEDS: REMOVE OLD PATCH T-DERMAL SCH (09:00)
[2017-01-24] MEDS ORDERED: FOLI1TAB4 PO (09:07)
[2017-01-24] MEDS ORDERED: METH500T3 PO (09:07)
[2017-01-24] MEDS: POLYETHYLENE GLYCOL 17 GM PKG PO SCH (09:20)
[2017-01-24] MEDS: TERAZOSIN HCL 5 MG CAP PO SCH (09:21)
[2017-01-24] MEDS: LACTULOSE SYRUP 20 GM/30 ML CUP PO SCH (09:21)
[2017-01-24] MEDS: MULTIVITAMIN TAB PO SCH (09:21)
[2017-01-24] MEDS: INDOMETHACIN 75 MG CONTROLLED RELEASE CAP PO SCH (09:21)
[2017-01-24] MEDS: FOLIC ACID 1 MG TAB PO SCH (09:21)
[2017-01-24] MEDS: DOCUSATE SODIUM 50 MG/SENNA 8.6 MG TAB PO SCH ×2 (09:21→20:51)
[2017-01-24] MEDS: FAMOTIDINE 20 MG TAB PO SCH ×2 (09:21→20:51)
[2017-01-24] MEDS: NYSTATIN 100,000 UNIT/GM CREAM 15 GM TOPICAL SCH ×2 (09:25→20:52)
[2017-01-24] MEDS ORDERED: WHEEMIS3 (09:57)
--- NOTE | 2017-01-24 12:02 | PD.ORT.PN ---
Subjective Subjective Remarks Resting comfortably with no new complaints. States that he is homeless and states that he has [facility] he can [facility] Objective Vitals Vital Signs Date Time Temp Pulse Resp B/P Pulse Ox O2 Delivery O2 Flow Rate FiO2 01/24/17 08:00 96.7 78 20 133/84 98 01/23/17 20:00 96.0 80 20 108/60 100 I/O 01/23/17 01/23/17 01/23/17 01/24/17 01/24/17 01/24/17 07:00 15:00 23:00 07:00 15:00 23:00 Intake Total 420 ml 420 ml 360 ml 120 ml Output Total 400 ml Balance 20 ml 420 ml 360 ml 120 ml Intake Oral 420 ml 420 ml 360 ml 120 ml Output Urine Total 400 ml # Voids 2 2 2 # Bowel Movements 0 Imaging Last 24 hours Impressions Multiplanar Reconstruction 01/03/17 0000 Signed Impressions: Service Date/Time: Monday, January 02, 2017 21:26 - CONCLUSION: 3-D reconstructions of left pelvic fracture. Cristian Burr MD Chest X-Ray 01/03/17 0000 Signed Impressions: Service Date/Time: Tuesday, January 03, 2017 05:26 - CONCLUSION: 1. Interval development of prominent right-sided pneumothorax. Right-sided chest tube recommended. 2. Bibasilar atelectasis greater in the left lower lobe. Cristian Burr MD Thoracic Spine CT 01/02/172114 Signed Impressions: Service Date/Time: Monday, January 02, 2017 21:26 - CONCLUSION: 1. Fracture of the right posterior first rib. 2. The thoracic vertebra are intact. Basilio Nicole MD Lumbar Spine CT 01/02/172114 Signed Impressions: Service Date/Time: Monday, January 02, 2017 21:26 - CONCLUSION: 1. No evidence of fracture. 2. Grade 1 anterior spondylolisthesis of L5 on S1 of approximately 9 mm with apparent bilateral pars defects. There are mild degenerative disc changes at this level with disc bulge and narrowing of the neural foramina bilaterally. Basilio Nicole MD Pelvis X-Ray 01/02/172110 Signed Impressions: Service Date/Time: Monday, January 02, 2017 21:05 - CONCLUSION: Racture to the superior left acetabulum. Basilio Nicole MD Head CT 01/02/172110 Signed Impressions: Service Date/Time: Monday, January 02, 2017 21:21 - CONCLUSION: 1. Suboptimal study secondary to streak and mild motion artifact. 2. No acute hemorrhage or mass effect. Basilio Nicole MD Chest X-Ray 01/02/172110 Signed Impressions: Service Date/Time: Monday, January 02, 2017 21:05 - CONCLUSION: Multiple right-sided rib fractures with no visualized pneumothorax on this supine study. Basilio Nicole MD Chest CT 01/02/172110 Signed Impressions: Service Date/Time: Monday, January 02, 2017 21:26 - CONCLUSION: 1. Multiple right-sided rib fractures one of which is mildly displaced with small amount of subcutaneous air and no visualized pneumothorax. 2. Small to moderate size hiatal hernia. 3. Atelectasis in the dependent portions of the lung bases. Basilio Nicole MD Cervical Spine CT 01/02/172110 Signed Impressions: Service Date/Time: Monday, January 02, 2017 21:21 - CONCLUSION: Fracture of the right anterior first rib. The cervical spine is intact. Basilio Nicole MD Abdomen/Pelvis CT 01/02/172110 Signed Impressions: Service Date/Time: Monday, January 02, 2017 21:26 - CONCLUSION: 1. No definite evidence of visceral injury. 2. Comminuted fracture deformity of the left acetabulum. 3. Are currently enlarged bladder with trabeculation and multiple diverticuli. 4. Moderate bilateral hydronephrosis. 5. Hiatal hernia. Basilio Nicole MD Procedures Left Acetabulum Fx s/p ORIF Objective Remarks LLE: dressings clean and dry. intact. incision visualized. clean and dry. no drainage. Intact sensation distally with good capillary refills and strong dorsiflexion and plantar flexion of foot Assessment & Plan Problem List: (1) Acetabulum fracture, left (2) Multiple fractures of ribs (3) Trauma (4) Alcohol intoxication Assessment and Plan 1) Left Acetabulum Fx s/p ORIF - POD 20 -TTWB left leg -Remove sheila and dressed with Xeroform and 4 x 4's and paper tape 3 days then discontinue -knee brace while in bed Lovenox -work with PT, toe touch w/b - patient understands that if he bears weight or stands on the left lower extremity he will displace his acetabulum and will create severe arthritic and painful changes -Plan for discharge to jail on Sunday if no drainage is seen from incision Follow-up appointment with Dr. Thurston or PA in 1 month Basilio Badillo Jr. January 24, 2017 12:02
[2017-01-24] MEDS: ENOXAPARIN SODIUM 30 MG/0.3 ML SYRINGE SQ SCH (16:00)
[2017-01-24 20:00] VITALS: BP 109/71; PULSE 84; RESP 19; TEMP 97.8; O2SAT 98
[2017-01-24] MEDS: REMOVE OLD LIDODERM PATCH T-DERMAL SCH (21:00)
[2017-01-25] MEDS: METHOCARBAMOL 500 MG TAB PO SCH ×3 (05:34→21:05)
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
[2017-01-25] MEDS: MULTIVITAMIN TAB PO SCH (08:57)
[2017-01-25] MEDS: FAMOTIDINE 20 MG TAB PO SCH ×2 (08:58→21:06)
[2017-01-25] MEDS: ACETAMINOPHEN/HYDROcodone 325 MG/10 MG TAB PO PRN ×3 (08:58→21:10)
[2017-01-25] MEDS: TERAZOSIN HCL 5 MG CAP PO SCH (08:59)
[2017-01-25] MEDS: REMOVE OLD PATCH T-DERMAL SCH (09:00)
[2017-01-25] MEDS: FOLIC ACID 1 MG TAB PO SCH (09:00)
[2017-01-25] MEDS: LIDOCAINE HCL 5% PATCH T-DERMAL SCH (09:00)
[2017-01-25] MEDS: LACTULOSE SYRUP 20 GM/30 ML CUP PO SCH (09:00)
[2017-01-25] MEDS: POLYETHYLENE GLYCOL 17 GM PKG PO SCH (09:00)
[2017-01-25] MEDS: DOCUSATE SODIUM 50 MG/SENNA 8.6 MG TAB PO SCH ×2 (09:00→21:06)
[2017-01-25] MEDS: NYSTATIN 100,000 UNIT/GM CREAM 15 GM TOPICAL SCH ×2 (09:00→21:06)
[2017-01-25] MEDS: INDOMETHACIN 75 MG CONTROLLED RELEASE CAP PO SCH (09:00)
[2017-01-25 11:28] VITALS: BP 137/83; PULSE 73; RESP 16; TEMP 97.1; O2SAT 98
[2017-01-25] MEDS: ENOXAPARIN SODIUM 30 MG/0.3 ML SYRINGE SQ SCH (16:00)
[2017-01-25 20:00] VITALS: BP 111/73; PULSE 90; RESP 16; TEMP 98.2; O2SAT 95
[2017-01-25] MEDS: REMOVE OLD LIDODERM PATCH T-DERMAL SCH (21:00)
[2017-01-26] MEDS: METHOCARBAMOL 500 MG TAB PO SCH (05:34)
[2017-01-26] MEDS ORDERED: WHEEMIS3 (07:34)
[2017-01-26] MEDS ORDERED: INDO75CA3 PO (07:37)
[2017-01-26] MEDS ORDERED: THERTAB15 PO (07:37)
[2017-01-26] MEDS: REMOVE OLD PATCH T-DERMAL SCH (09:00)
[2017-01-26] MEDS: NYSTATIN 100,000 UNIT/GM CREAM 15 GM TOPICAL SCH (09:00)
[2017-01-26] MEDS: FOLIC ACID 1 MG TAB PO SCH (09:01)
[2017-01-26] MEDS: POLYETHYLENE GLYCOL 17 GM PKG PO SCH (09:01)
[2017-01-26] MEDS: FAMOTIDINE 20 MG TAB PO SCH (09:01)
[2017-01-26] MEDS: LACTULOSE SYRUP 20 GM/30 ML CUP PO SCH (09:01)
[2017-01-26] MEDS: MULTIVITAMIN TAB PO SCH (09:01)
[2017-01-26] MEDS: TERAZOSIN HCL 5 MG CAP PO SCH (09:01)
[2017-01-26] MEDS: LIDOCAINE HCL 5% PATCH T-DERMAL SCH (09:01)
[2017-01-26] MEDS: DOCUSATE SODIUM 50 MG/SENNA 8.6 MG TAB PO SCH (09:01)
[2017-01-26] MEDS: INDOMETHACIN 75 MG CONTROLLED RELEASE CAP PO SCH (09:01)
[2017-01-26] MEDS ORDERED: FAMO20TA2 PO (09:09)
[2017-01-26 09:12] VITALS: BP 134/89; PULSE 76; RESP 18; TEMP 96.4; O2SAT 98
[2017-01-26] MEDS ORDERED: NYST15T TOPICAL (09:12)
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
[2017-01-26] MEDS ORDERED: HYDR-3583 PO (09:40)
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
== END 2017-01-26 10:47 | disposition home or self-care (01) | DRG 958 ==
LOC: NEPI 21:06 → MERGE 22:34 → EDBD 22:34 → NEDA 22:34 → N03B 01-03 00:30 → N03A 01-03 19:45 → N06A 01-04 18:23 → UNDODISIN 01-07 15:26 → PH5A 01-20 10:30
PROVIDERS: ADMIT Internal Medicine; ATTEND Internal Medicine
PROC: 0JQP3ZZ Repair Left Lower Leg Subcutaneous Tissue and Fascia, Percutaneous Approach (ICD-10-PCS; 2017-01-02)
PROC: 0W9930Z Drainage of Right Pleural Cavity with Drainage Device, Percutaneous Approach (ICD-10-PCS; 2017-01-03)
PROC: DPY87ZZ Contact Radiation of Pelvic Bones (ICD-10-PCS; 2017-01-04)
PROC: 0QS504Z Reposition Left Acetabulum with Internal Fixation Device, Open Approach (ICD-10-PCS; principal; 2017-01-04 06:53)
DX: S32.462A Displaced associated transverse-posterior fracture of left acetabulum, initial encounter for closed fracture (principal); S27.0XXA Traumatic pneumothorax, initial encounter; N17.9 Acute kidney failure, unspecified; S22.41XA Multiple fractures of ribs, right side, initial encounter for closed fracture; N13.30 Unspecified hydronephrosis; J98.11 Atelectasis; F10.229 Alcohol dependence with intoxication, unspecified; Y90.8 Blood alcohol level of 240 mg/100 ml or more; S81.012A Laceration without foreign body, left knee, initial encounter; V43.52XA Car driver injured in collision with other type car in traffic accident, initial encounter; M43.17 Spondylolisthesis, lumbosacral region; K44.9 Diaphragmatic hernia without obstruction or gangrene; N40.1 Benign prostatic hyperplasia with lower urinary tract symptoms; D72.829 Elevated white blood cell count, unspecified; S80.211A Abrasion, right knee, initial encounter; B19.20 Unspecified viral hepatitis C without hepatic coma; F60.2 Antisocial personality disorder; F14.10 Cocaine abuse, uncomplicated; F17.210 Nicotine dependence, cigarettes, uncomplicated; Z59.0 Homelessness; Z89.512 Acquired absence of left leg below knee; Z88.2 Allergy status to sulfonamides
CPT/HCPCS: 12032; 32557; 36430; 70450; 71010; 71250; 72125; 72128; 72131; 72170; 72190; 73560; 74176; 76000; 76377; 77290; 77307; 77334; 77336; 77387; 77412; 77417; 77431; 80048; 80053; 80076; 80307; 81001; 82435; 82565; 82947; 83735; 84100; 84132; 84295; 84520; 85014; 85018; 85025; 85610; 85730; 86850; 86900; 86901; 86920; 86965; 87040; 87070; 87205; 87641; 90471; 90715; 93005; 94150; 94640; 94664; 96361; 96365; 96374; 96375; 99152; 99153; 99221; 99291; C1713; C1729; C1769; C9113; G0390; J0131; J0456; J0690; J0692; J1100; J1170; J1580; J1644; J1650; J1885; J2060; J2250; J2270; J2370; J2405; J2710; J3010; J3370; J3411; J7030; J7040; J7050; J7120; P9016; P9035